=== PATIENT | male | born 1935 | race Caucasian/White ===

== ENCOUNTER 2017-01-19 18:36 | Inpatient (IN) | payer MEDICARE, OTHER ==
--- NOTE | 2017-01-19 20:11 | RAD ---
INDICATION: Chest pain. COMPARISON: Comparison is made with a prior chest x-ray study from March 17, 2016. TECHNIQUE: A portable view of the chest was obtained. FINDINGS: There is a dual-chamber transvenous pacemaker present. The heart is within normal limits in size. The lungs are clear. No pleural effusion is seen. IMPRESSION: NO EVIDENCE FOR ACUTE FINDING, PACEMAKER IN PLACE.
[2017-01-19 20:29] LABS: Hematocrit 43 % (42-52); Hemoglobin 14.3 g/dl (14.0-18.0); Mean Corpuscular HGB Conc 33 g/dl (31-36); Mean Corpuscular Hemoglobin 32 pg (27-31); Mean Corpuscular Volume 96 fL (80-94); Mean Platelet Volume 8 um3 (7.4-10.4); Red Blood Count 4.45 10^6/ul (4.0-5.4); Red Cell Distribution Width 15 % (10.5-15); White Blood Count 6.1 10^3/ul (3.5-10.8)
[2017-01-19 20:45] LABS: Albumin 3.9 g/dL (3.2-5.2); BUN/Creatinine Ratio 17.9 (8-20); Calcium 9.7 mg/dL (8.6-10.3); EGFR African American 81.1 (>60); EGFR Non-African American 63.1 (>60); Globulin 3.6 g/dL (2-4); Potassium 4.2 mmol/L (3.5-5.0); Total Bilirubin 0.6 mg/dL (0.2-1.0); Total Protein 7.5 g/dL (6.4-8.9)
[2017-01-19 20:46] LABS: Troponin I 0.01 ng/mL (<0.04)
[2017-01-19] MEDS ORDERED: hydrALAZINE IV* 20 MG/ML VIAL IV PRN (22:11)
[2017-01-19] MEDS ORDERED: hydrALAZINE IV* 20 MG/ML VIAL ONE (22:13)
--- NOTE | 2017-01-19 22:24 | ED ---
Jessica Mills SooYoung, scribed for Jeevan Chowdary MD on 01/19/17 at 1932 . HPI Chest Pain - HPI Summary HPI Summary: An 81 y/o M with pacemaker presents to ED with c/o intermittent CP for past ten days. Pain is described as sharp and occurs with exertion, most commonly when he 's walking. Denies diaphoresis, SOB, lightheadedness. Pt has recently traveled via cruise and cross-country flight. He thought his CP was acid reflux initially. Saw Dr. Pascual today, who performed an EKG and recommend pt be further evaluated in ED. PMHx: afib. Takes blood thinner. Pt states being hungry at bedside. - History of Current Complaint Chief Complaint: EDChestPainROMI Time Seen by Provider: 01/19/17 19:16 Hx Obtained From: Patient, Family/Mender Hand Onset/Duration: Started Days Ago, Still Present Timing: Intermittent Current Severity: Severe Pain Intensity: 9 Pain Scale Used: 0-10 Numeric Character: Sharp/Stabbing Aggravating Factor(s): Exertion - walking Associated Signs and Symptoms: Negative: Shortness of Breath, Lightheadedness, Diaphoresis - Allergy/Home Medications Allergies/Adverse Reactions: Allergies Allergy/AdvReac Type Severity Reaction Status Date / Time Cimetidine [From Tagamet HB] Allergy Intermediate Bleeding Verified 11/03/15 11: 52 Tamsulosin [From Flomax] Allergy Intermediate Dizziness Verified 11/03/15 11:52 Statins Allergy Mild body aches Verified 11/03/15 11:52 Gabapentin Allergy GI Upset Verified 11/03/15 11:52 arreola Allergy Unknown Uncoded 11/03/15 11:52 Reaction Details Vascepa Allergy Unknown Uncoded 06/06/16 09:35 Reaction Details PMH/Surg Hx/FS Hx/Imm Hx Previously Healthy: No Endocrine/Hematology History: Reports: Hx Anticoagulant Therapy Denies: Hx Diabetes, Hx Systemic Lupus Erythematosus, Hx Thyroid Disease Cardiovascular History: Reports: Hx Aneurysm, Hx Atrial Fibrillation, Hx Hypertension, Hx Pacemaker/ICD Denies: Hx Congestive Heart Failure Respiratory History: Denies: Hx Asthma, Hx Chronic Obstructive Pulmonary Disease (COPD) GI History: Denies: Hx Ulcer History: Denies: Hx Dialysis, Hx Renal Disease Musculoskeletal History: Denies: Hx Rheumatoid Arthritis, Hx Osteoporosis Neurological History: Denies: Hx CVA, Hx Peripheral Neuropathy Psychiatric History: Denies: Hx Anxiety, Hx Depression - Cancer History Hx Chemotherapy: No - Surgical History Surgery Procedure, Year, and Place: pacer, l5-s1 fusion,RT FOREARM, VASECTOMY, RT HEEL SPUR Infectious Disease History: No Infectious Disease History: Reports: Hx Hepatitis, Hx Shingles, Traveled Outside the [place] in Last 30 Days - [place] - Family History Known Family History: Positive: Hypertension - Social History Occupation: Retired Lives: With Family Alcohol Use: Weekly Hx Substance Use: No Substance Use Type: Reports: None Hx Tobacco Use: Yes Smoking Status (MU): Former Smoker Type: Cigarettes Review of Systems Negative: Skin Diaphoresis - neg: lightheadedness Positive: Chest Pain Negative: Shortness Of Breath All Other Systems Reviewed And Are Negative: Yes Physical Exam Triage Information Reviewed: Yes Vital Signs On Initial Exam: Initial Vitals Temp Pulse Resp BP Pulse Ox 96 F 88 16 164/95 97 01/19/17 18:42 01/19/17 18:42 01/19/17 18:42 01/19/17 18:42 01/19/17 18:42 Vital Signs Reviewed: Yes Appearance: Positive: Well-Appearing, No Pain Distress Skin: Positive: Warm, Skin Color Reflects Adequate Perfusion, Dry Head/Face: Positive: Normal Head/Face Inspection Eyes: Positive: Normal ENT: Positive: Normal ENT inspection Neck: Positive: Supple, Nontender Respiratory/Lung Sounds: Positive: Clear to Auscultation, Breath Sounds Present Cardiovascular: Positive: IRR Abdomen Description: Positive: Nontender, Soft Bowel Sounds: Positive: Present Musculoskeletal: Positive: Normal Neurological: Positive: Normal Psychiatric: Positive: Normal, Affect/Mood Appropriate Diagnostics - Vital Signs Vital Signs Temp Pulse Resp BP Pulse Ox 01/19/17 18:42 96 F 88 16 164/95 97 - Laboratory Lab Results: Lab Results 01/19/17 01/19/17 01/19/17 Range/Units 20:23 20:23 20:23 WBC 6.1 (3.5-10.8) 10^3/ul RBC 4.45 (4.0-5.4) 10^6/ul Hgb 14.3 (14.0-18.0) g/dl Hct 43 (42-52) % MCV 96 H (80-94) fL MCH 32 H (27-31) pg MCHC 33 (31-36) g/dl RDW 15 (10.5-15) % Plt Count 220 (150-450) 10^3/ul MPV 8 (7.4-10.4) um3 Neut % (Auto) 50.6 (38-83) % Lymph % (Auto) 34.3 (25-47) % [place] % (Auto) 11.4 H (1-9) % Eos % (Auto) 2.5 (0-6) % Baso % (Auto) 1.2 (0-2) % Absolute Neuts (auto) 3.1 (1.5-7.7) 10^3/ul Absolute Lymphs (auto) 2.1 (1.0-4.8) 10^3/ul Absolute Monos (auto) 0.7 (0-0.8) 10^3/ul Absolute Eos (auto) 0.2 (0-0.6) 10^3/ul Absolute Basos (auto) 0.1 (0-0.2) 10^3/ul Absolute Nucleated RBC 0 10^3/ul Nucleated RBC % 0 INR (Anticoag Therapy) 1.25 H (0.89-1.11) D-Dimer, Quantitative 200 (Less Than 230) ng/mL Sodium 135 (133-145) mmol/L Potassium 4.2 (3.5-5.0) mmol/L Chloride 103 (101-111) mmol/L Carbon Dioxide 26 (22-32) mmol/L Anion Gap 6 (2-11) mmol/L BUN 20 (6-24) mg/dL Creatinine 1.12 (0.67-1.17) mg/dL Est GFR ( Amer) 81.1 (>60) Est GFR (Non-Af Amer) 63.1 (>60) BUN/Creatinine Ratio 17.9 (8-20) Glucose 94 (70-100) mg/dL Lactic Acid (0.5-2.0) mmol/L Calcium 9.7 (8.6-10.3) mg/dL Total Bilirubin 0.60 (0.2-1.0) mg/dL AST 20 (13-39) U/L ALT 18 (7-52) U/L Alkaline Phosphatase 43 (34-104) U/L Troponin I 0.01 (<0.04) ng/mL Total Protein 7.5 (6.4-8.9) g/dL Albumin 3.9 (3.2-5.2) g/dL Globulin 3.6 (2-4) g/dL Albumin/Globulin Ratio 1.1 (1-3) 01/19/17 Range/Units 20:23 WBC (3.5-10.8) 10^3/ul RBC (4.0-5.4) 10^6/ul Hgb (14.0-18.0) g/dl Hct (42-52) % MCV (80-94) fL MCH (27-31) pg MCHC (31-36) g/dl RDW (10.5-15) % Plt Count (150-450) 10^3/ul MPV (7.4-10.4) um3 Neut % (Auto) (38-83) % Lymph % (Auto) (25-47) % [place] % (Auto) (1-9) % Eos % (Auto) (0-6) % Baso % (Auto) (0-2) % Absolute Neuts (auto) (1.5-7.7) 10^3/ul Absolute Lymphs (auto) (1.0-4.8) 10^3/ul Absolute Monos (auto) (0-0.8) 10^3/ul Absolute Eos (auto) (0-0.6) 10^3/ul Absolute Basos (auto) (0-0.2) 10^3/ul Absolute Nucleated RBC 10^3/ul Nucleated RBC % INR (Anticoag Therapy) (0.89-1.11) D-Dimer, Quantitative (Less Than 230) ng/mL Sodium (133-145) mmol/L Potassium (3.5-5.0) mmol/L Chloride (101-111) mmol/L Carbon Dioxide (22-32) mmol/L Anion Gap (2-11) mmol/L BUN (6-24) mg/dL Creatinine (0.67-1.17) mg/dL Est GFR ( Amer) (>60) Est GFR (Non-Af Amer) (>60) BUN/Creatinine Ratio (8-20) Glucose (70-100) mg/dL Lactic Acid 0.8 (0.5-2.0) mmol/L Calcium (8.6-10.3) mg/dL Total Bilirubin (0.2-1.0) mg/dL AST (13-39) U/L ALT (7-52) U/L Alkaline Phosphatase (34-104) U/L Troponin I (<0.04) ng/mL Total Protein (6.4-8.9) g/dL Albumin (3.2-5.2) g/dL Globulin (2-4) g/dL Albumin/Globulin Ratio (1-3) Result Diagrams: 01/19/17 20:23 01/19/17 20:23 Lab Statement: Any lab studies that have been ordered have been reviewed, and results considered in the medical decision making process. - Radiology CXR Xray Interpretation: No Acute Changes - IMPRESSION: No evidence for acute findings. Pacemaker in place. ED physician has reviewed this report and agrees. Radiology Interpretation Completed By: Radiologist - EKG 1858 EKG Rhythm: Atrial Fibrillation - with controlled rate Chest Pain Course/Dx - Course Course Of Treatment: Mr. Keller has a worrisome story for unstable angina and an EDACS score of 27. I have asked the hospitalists to admit him for further W/ U. - Diagnoses Provider Diagnoses: Chest pain - Provider Notifications Discussed Care Of Patient With: Asaf Phillip - hospitalist Time Discussed With Above Provider: 20:15 Instructed by Provider To: Other - Discussed pt. Will wait to see lab results. Discharge - Discharge Plan Condition: Stable Disposition: ADMITTED TO [facility] Referrals: Na Pascual MD [Primary Care Provider] - Consult Consult: 2126: Consult with Dr. Phillip, hospitalist Will admit pt. The documentation as recorded by the Jessica muñiz SooYoung accurately reflects the service I personally performed and the decisions made by me, Jeevan Chowdary MD.
[2017-01-19] MEDS ORDERED: Aspirin Low Dose CHEW TAB* 81 MG PO ONE (22:44)
[2017-01-19] MEDS ORDERED: oxyCODONE TAB* 5 MG TAB PO PRN (22:44)
[2017-01-19] MEDS ORDERED: Ondansetron INJ* 2 MG/ML VIAL IV PRN (22:44)
[2017-01-19] MEDS ORDERED: Albuterol 2.5 MG/3 ML NEB.SOL* (0.083%) INH PRN (22:44)
[2017-01-19] MEDS ORDERED: NS 0.9% 1000 ML* 1,000 ML IV SCH (22:45)
--- NOTE | 2017-01-19 22:48 | HP ---
H&P (Free Text) History and Physical: PCP: Ye Crenshaw MD Date/Time: 01/19/20172019 CC: chest pain HPI: Mr Keller is an 81YO male HX CAD w/ 50% LAD lesion on cath 2005 who went on a cruise ~10days ago. At the beginning he was having a cough typical of his Spring/Fall seasonal allergies, but towards the end of the trip and now afterwards he began having exertional mod/sev substernal to L parasternal chest pain associated with a near syncopal feeling, but no SOB, N/V, sweats, palpitations, or light-headedness. Additionally, he denies sputum production, F/ C, LE swelling, or other issues. Pain is not affected by movement, cough, or deep inspiration. PMedHx CAD w/ 50% LAD lesion on cath 2005 HX CVA HTN HLD, pure chronic AFIB KYLE pseudo-gout Ambulatory Orders Nursing to reconcile. Aspirin 81 mg PO DAILY 08/26/13 Diltiazem HCl Coated Beads [Diltiazem HCl ER] 360 mg PO DAILY 08/26/13 Fexofenadine HCl [Yessenia Allergy] 180 mg PO DAILY PRN 08/26/13 Mometasone Furoate (Nasal) [Nasonex] 2 spray BOTH NARES BID PRN 08/26/13 Multiple Vitamin [Multivitamins] 1 tab PO DAILY 08/26/13 Carvedilol TAB* [Coreg TAB*] 6.25 mg PO BID 11/03/15 Diclofenac 1% GEL (NF) [Voltaren 1% GEL (NF)] 1 applic TOPICAL DAILY PRN Afilbercept 1 tab PO DAILY PRN 06/06/16 [place]-3 Fatty Acids [Fish Oil 1200 mg] 1 cap PO BID 06/06/16 Voltaren EC TAB* 1 tab PO DAILY 06/06/16 Acetaminophen [Acetaminophen Extra Stren] 500 mg PO BID 06/10/16 Vdaytxivrgo-Tgeeroqqywn-Qmo C- [Glucosamine 1500 Complex] 1 cap PO BID 06/10/16 Lidocaine PATCH 5%* [Lidoderm 5% Patch*] 1 patch TRANSDERM DAILY PRN 06/10/16 Allergies Cimetidine [From Tagamet HB] Allergy (Intermediate, Verified 11/03/15 11:52) Bleeding Tamsulosin [From Flomax] Allergy (Intermediate, Verified 11/03/15 11:52) Dizziness Statins Allergy (Mild, Verified 11/03/15 11:52) body aches Gabapentin Allergy (Verified 11/03/15 11:52) GI Upset arreola Allergy (Uncoded 11/03/15 11:52) Unknown Reaction Details Vascepa Allergy (Uncoded 06/06/16 09:35) Unknown Reaction Details PSurgHx Lumbar laminectomy & fusion vasectomy foot surgery SocHx: former smoker w/ ~10 PYHX, mild alcohol, no recreational drugs; lives with his ; full code status FamHx: Father: COPD; Mother: passed in child ROS: as above, otherwise reviewed and all were negative vitals: Vital Signs Temp 36.4 C 01/19/17 22:21 Pulse 88 01/19/17 22:21 Resp 18 01/19/17 22:21 BP 156/103 01/19/17 22:21 Pulse Ox 97 01/19/17 22:21 Intake & Output 01/18/17 01/19/17 01/19/17 23:59 11:59 23:59 Weight 99.79 kg Constitutional: NAD, normally developed, obese elderly white male HEENM: atraumatic; sclera/conjunctiva: non-icteric/clear; hearing: clinically intact; oropharynx: clear, mucosa moist Neck: soft tissue: non-tender; thyroid: normal Pulmonary: clear to auscultation bilaterally, good aeration, no accessory muscle use CV: RR/RR, normal S1S2, no carotid bruit, no jugular venous distention, 2+ B DP/ PT, no edema Abdominal: soft, non-distended, non-tender, no rebound/guarding/rigidity, normoactive bowel sounds, no hepatosplenomegaly or masses, no costovertebral angle tenderness Musculoskeletal: general: grossly intact; gait: stable Integumental: normal appearance and texture of exposed skin Psychiatric orientation: AA&O to PPS affect: calm mood: pleasant eye contact: good content: reliable responses: timely insight: good Testing: Lab Results 01/19/17 01/19/17 01/19/17 Range/Units 20:23 20:23 20:23 WBC 6.1 (3.5-10.8) 10^3/ul RBC 4.45 (4.0-5.4) 10^6/ul Hgb 14.3 (14.0-18.0) g/dl Hct 43 (42-52) % MCV 96 H (80-94) fL MCH 32 H (27-31) pg MCHC 33 (31-36) g/dl RDW 15 (10.5-15) % Plt Count 220 (150-450) 10^3/ul MPV 8 (7.4-10.4) um3 Neut % (Auto) 50.6 (38-83) % Lymph % (Auto) 34.3 (25-47) % [place] % (Auto) 11.4 H (1-9) % Eos % (Auto) 2.5 (0-6) % Baso % (Auto) 1.2 (0-2) % Absolute Neuts (auto) 3.1 (1.5-7.7) 10^3/ul Absolute Lymphs (auto) 2.1 (1.0-4.8) 10^3/ul Absolute Monos (auto) 0.7 (0-0.8) 10^3/ul Absolute Eos (auto) 0.2 (0-0.6) 10^3/ul Absolute Basos (auto) 0.1 (0-0.2) 10^3/ul Absolute Nucleated RBC 0 10^3/ul Nucleated RBC % 0 INR (Anticoag Therapy) 1.25 H (0.89-1.11) D-Dimer, Quantitative 200 (Less Than 230) ng/mL Sodium 135 (133-145) mmol/L Potassium 4.2 (3.5-5.0) mmol/L Chloride 103 (101-111) mmol/L Carbon Dioxide 26 (22-32) mmol/L Anion Gap 6 (2-11) mmol/L BUN 20 (6-24) mg/dL Creatinine 1.12 (0.67-1.17) mg/dL Est GFR ( Amer) 81.1 (>60) Est GFR (Non-Af Amer) 63.1 (>60) BUN/Creatinine Ratio 17.9 (8-20) Glucose 94 (70-100) mg/dL Lactic Acid (0.5-2.0) mmol/L Calcium 9.7 (8.6-10.3) mg/dL Total Bilirubin 0.60 (0.2-1.0) mg/dL AST 20 (13-39) U/L ALT 18 (7-52) U/L Alkaline Phosphatase 43 (34-104) U/L Troponin I 0.01 (<0.04) ng/mL Total Protein 7.5 (6.4-8.9) g/dL Albumin 3.9 (3.2-5.2) g/dL Globulin 3.6 (2-4) g/dL Albumin/Globulin Ratio 1.1 (1-3) 01/19/17 Range/Units 20:23 WBC (3.5-10.8) 10^3/ul RBC (4.0-5.4) 10^6/ul Hgb (14.0-18.0) g/dl Hct (42-52) % MCV (80-94) fL MCH (27-31) pg MCHC (31-36) g/dl RDW (10.5-15) % Plt Count (150-450) 10^3/ul MPV (7.4-10.4) um3 Neut % (Auto) (38-83) % Lymph % (Auto) (25-47) % [place] % (Auto) (1-9) % Eos % (Auto) (0-6) % Baso % (Auto) (0-2) % Absolute Neuts (auto) (1.5-7.7) 10^3/ul Absolute Lymphs (auto) (1.0-4.8) 10^3/ul Absolute Monos (auto) (0-0.8) 10^3/ul Absolute Eos (auto) (0-0.6) 10^3/ul Absolute Basos (auto) (0-0.2) 10^3/ul Absolute Nucleated RBC 10^3/ul Nucleated RBC % INR (Anticoag Therapy) (0.89-1.11) D-Dimer, Quantitative (Less Than 230) ng/mL Sodium (133-145) mmol/L Potassium (3.5-5.0) mmol/L Chloride (101-111) mmol/L Carbon Dioxide (22-32) mmol/L Anion Gap (2-11) mmol/L BUN (6-24) mg/dL Creatinine (0.67-1.17) mg/dL Est GFR ( Amer) (>60) Est GFR (Non-Af Amer) (>60) BUN/Creatinine Ratio (8-20) Glucose (70-100) mg/dL Lactic Acid 0.8 (0.5-2.0) mmol/L Calcium (8.6-10.3) mg/dL Total Bilirubin (0.2-1.0) mg/dL AST (13-39) U/L ALT (7-52) U/L Alkaline Phosphatase (34-104) U/L Troponin I (<0.04) ng/mL Total Protein (6.4-8.9) g/dL Albumin (3.2-5.2) g/dL Globulin (2-4) g/dL Albumin/Globulin Ratio (1-3) ECG, personally reviewed: AFIB rate 84, no ischemia, non-specific diffuse ST-T changes CXR, personally reviewed: IMPRESSION: NO EVIDENCE FOR ACUTE FINDING, PACEMAKER IN PLACE. Impression: 81M presenting with chest pain for r/o ACS DIAGNOSIS & PLAN Primary chest pain r/o ACS : CAD w/ 50% LAD lesion on cath 2006 : telemetry : trend troponin : supplemental oxygen : aspirin : chemical NST in AM : consider cardiology consult pending above results : supportive care Secondary HX CVA : review meds once reconciled HTN : review meds once reconciled HLD, pure : review meds once reconciled chronic AFIB : review meds once reconciled KYLE : review meds once reconciled pseudo-gout : review meds once reconciled Admission Rational: observation for r/o ACS DVTp: SCDs & heparin SQ Code Status: full HCP:
[2017-01-19] MEDS: Morphine INJ* 2 MG/ML 1 ML SYRINGE (TWO MG - NEW SYRINGE VERSION) IV PRN (23:28)
[2017-01-20 00:33] LABS: EGFR African American 98.1 (>60); EGFR Non-African American 76.3 (>60)
[2017-01-20 00:35] LABS: Troponin I 0.01 ng/mL (<0.04)
[2017-01-20] MEDS: Heparin VIAL(*) 5000 UNITS/ML VIAL (FIVE THOUSAND) SUBCUT SCH ×3 (05:44→21:07)
[2017-01-20] MEDS: Morphine INJ* 2 MG/ML 1 ML SYRINGE (TWO MG - NEW SYRINGE VERSION) IV PRN (05:45)
[2017-01-20] MEDS ORDERED: Omeprazole CAP* 20 MG PO SCH (06:00)
[2017-01-20] MEDS: Docusate CAP* 100 MG PO SCH ×2 (08:46→21:05)
[2017-01-20] MEDS: Aspirin EC Low Dose* 81 MG TAB.EC PO SCH (08:46)
[2017-01-20] MEDS ORDERED: Regadenoson* 0.4 MG/5 ML SYRINGE ONE (11:56)
--- NOTE | 2017-01-20 13:10 | RAD ---
Edited for charges. INDICATION: Chest pain COMPARISON: Cardiac gated blood pool scan January 04, 2015 TECHNIQUE: A single day SPECT protocol was utilized. Rest images were acquired following the intravenous injection of 10.5 millicuries of technetium 99m tetrofosmin. Pharmacologic stress images were acquired following the intravenous administration of 26.2 millicuries of technetium 99m tetrofosmin. FINDINGS: There is a moderate to large anteroapical defect which is primarily ischemic although the may be a tiny fixed component near the apex. There are no other defects or stress-induced or fixed nature. The cardiac chamber size is normal. There is paradoxical motion apex with extension to the inferior and septal vale near the apex. The ejection fraction is calculated at the lower range of normal measuring 51% during stress. IMPRESSION: There is a moderate-sized anteroapical defect which primarily represents an ischemic defect. Low-normal ejection fraction. ASSESSMENT: INTERMEDIATE-RISK Based on imaging criteria from ACC/AHA 2002 Guideline Update for the Management of Patients With Chronic Stable Angina Table 23. Noninvasive Risk Stratification. MTDD
--- NOTE | 2017-01-20 14:19 | PN ---
Subjective Date of Service: 01/20/17 Interval History: This is an 81 yo male with chronic afib who was admitted overnight with c/o CP. Patient had been having substernal exertional chest pain for several days prior to admission. He reports that he had some mild pain when he awoke this am. He was asx during stress test, but he had a soda after the stress test that seemed to make the pain worse. At the time of exam patient denies any ongoing CP or c/o SOB. Objective Active Medications: Acetaminophen (Tylenol Tab*) 650 mg PO Q6H PRN PRN Reason: FEVER/PAIN Albuterol (Ventolin 2.5 Mg/3 Ml Neb.Michaelle*) 2.5 mg INH Q2H PRN PRN Reason: SOB/WHEEZING Aspirin (Aspirin Ec Low Dose*) 81 mg PO DAILY [facility] Last Admin: 01/20/17 08:46 Dose: 81 mg Docusate Sodium (Colace Cap*) 200 mg PO BID [facility] Last Admin: 01/20/17 08:46 Dose: 200 mg Heparin Sodium (Porcine) (Heparin Vial(*)) 5,000 units SUBCUT Q8HR [facility] Last Admin: 01/20/17 13:03 Dose: 5,000 units Hydralazine HCl (Apresoline Iv*) 10 mg IV Q4H PRN PRN Reason: Systolic >170 Last Admin: 01/19/17 22:15 Dose: 10 mg Sodium Chloride (Ns 0.9% 1000 Ml*) 1,000 mls @ 50 mls/hr IV PER RATE [facility] Last Admin: 01/19/17 23:22 Dose: 50 mls/hr Melatonin (Melatonin (Nf)) 3 mg PO BEDTIME PRN; Protocol PRN Reason: Sleep Morphine Sulfate (Morphine Inj (Syringe)*) 2 mg IV Q4H PRN PRN Reason: PAIN - MILD Last Admin: 01/20/17 05:45 Dose: 2 mg Omeprazole (Prilosec Cap*) 20 mg PO DAILY@0600 [facility] Last Admin: 01/20/17 05:43 Dose: 20 mg Ondansetron HCl (Zofran Inj*) 4 mg IV Q6H PRN PRN Reason: NAUSEA Last Admin: 01/20/17 13:03 Dose: 4 mg Oxycodone HCl (Roxycodone Tab*) 2.5 mg PO Q4H PRN PRN Reason: PAIN Vital Signs: Temp Pulse Resp BP Pulse Ox 97.4 F 44 20 162/80 98 01/20/17 12:43 01/20/17 12:43 01/20/17 12:43 01/20/17 12:43 01/20/17 12:43 Oxygen Devices in Use Now: None Appearance: Well appearing elderly gentleman who appears younger than stated age in NAD Respiratory: Symmetrical Chest Expansion and Respiratory Effort, Clear to Auscultation Cardiovascular: NL Sounds; No Murmurs; No JVD, RRR Abdominal: NL Sounds; No Tenderness; No Distention Extremities: No Edema Skin: No Rash or Ulcers Neurological: Alert and Oriented x 3 Result Diagrams: 01/19/17 20:23 01/19/17 23:38 Additional Lab and Data: . Diagnostic Imaging: CXR - NAD EKG - afib, no ischemic changes Nuc stress test - moderate anteroapical defect which appears to be mostly ischemic Assess/Plan/Problems-Billing Assessment: This is an 81 yo male with chronic afib, CAD, HTN, HLD, KYLE and h/o CVA who presented with c/o CP. - Patient Problems (1) Chest pain Comment: Patient is now asx, but has had intermittent CP overnight Trop neg, no EKG changes Stress test positive for ischemic defect in anteroapical segment Requested cardiology consultation for possible catheterization (2) CAD (coronary artery disease) Comment: Followed by Dr Valle 50% LAD lesion on cath from 2005 (3) Afib Comment: Chronic Rate controlled Anticoagulated with Pradaxa (4) KYLE (obstructive sleep apnea) Comment: Compliant with CPAP (5) H/O: CVA (cerebrovascular accident) Comment: No sig residual deficit (6) HTN (hypertension) Comment: Mild HTN since admission Cont usual home medications at this time (7) HLD (hyperlipidemia) Comment: Statin intolerant (8) Pacemaker (9) Full code status (10) DVT prophylaxis Comment: Pradaxa Status and Disposition: Observation. Pending cardiology consultation
[2017-01-20] MEDS ORDERED: Clopidogrel TAB* 300 MG PO ONE (15:56)
--- NOTE | 2017-01-20 18:43 | CONS ---
CC: Dr. Basim Valle; Dr. Na Araujo * CARDIOLOGY CONSULTATION: DATE OF CONSULT: 01/20/17 INDICATION FOR CONSULTATION: Chest pain, abnormal stress test. HISTORY OF PRESENT ILLNESS: The patient is an 81-year-old gentleman with a history of moderate coronary artery disease, history of chronic atrial fibrillation, history of CVA in 2004, who came to the hospital because of chest pain. The patient states that he has been on a 14-day cruise through the [facility]. During that trip, he was having intermittent chest pain. He described the chest pain occasionally at rest, occasionally with meals, occasionally with exertion. He says that his worst episode of chest pain occurred when he got off the plane in [place] and was walking to the [employer] [facility] area. He said he had to sit twice during that trip because of crushing chest pain. The patient went to see his primary care physician yesterday afternoon, who referred the patient to the emergency room. On arrival to the emergency room, the patient was asymptomatic. His EKG showed atrial fibrillation with no ischemic EKG changes. His troponins have been negative. The patient underwent a chemical nuclear stress test today, which showed a large area of ischemia to his distal anterior wall on apex, which was completely reversible. The patient's TID was elevated at 1.38. His LV function was low normal. PAST MEDICAL HISTORY: Significant for chronic atrial fibrillation; history of pacemaker implantation; history of a CVA in 2004; history of sleep apnea, he uses a CPAP machine. PAST SURGICAL HISTORY: Lumbar laminectomy in 1966, vasectomy, heel spur removal in 1983, pacemaker implantation. OUTPATIENT MEDICATIONS: 1. Coreg 3.125 mg b.i.d. 2. Diltiazem ER 240 mg a day. 3. Oxygen as needed. 4. ProAir inhaler. 5. Pradaxa 150 mg b.i.d. The patient states his last dose was Thursday morning, January 19. 6. Aspirin 81 mg a day. 7. Voltaren cream. ALLERGIES: Intolerant of Tagamet and statin therapy. The patient did have a chemical nuclear stress test in August of 2015, which showed normal perfusion throughout the myocardium, normal LV function. His most recent pacemaker interrogation was in July of 2016, which demonstrated he was in atrial fibrillation 71% of the time. His atrial and ventricular leads are functioning normally. SOCIAL HISTORY: He is . He is currently retired. He is a previous smoker, quit in 1963. He drinks 3 to 4 glasses of wine a week. He does get regular exercise 3 to 4 times a week. PHYSICAL EXAM: Height is 5 feet 9 inches, weight 219 pounds, temperature 97.4, heart rate is 75, blood pressure 162/80, respiratory rate is 18, oxygen saturation 98% on room air. Sclerae anicteric. Oropharynx is pink without erythema. Carotids are 2+ without bruits. JVD is normal. Thyroid is normal. Cardiac Exam: Irregular S1, S2 without any murmurs, rubs, or gallops. PMI is normal. Lungs are clear to auscultation bilaterally. There is no dullness to percussion. Abdomen is obese, soft, nontender, nondistended with normoactive bowel sounds. Extremities show no edema. He has 2+ pulses in his dorsalis pedis, popliteal, and radial arteries. The patient is awake, alert, and oriented. He moves all 4 extremities equally. DIAGNOSTIC STUDIES/LAB DATA: CBC within normal limits. Chemistry is within normal limits. Troponins are negative x3. IMPRESSION: This is an 81-year-old gentleman with a history of moderate coronary artery disease, who was admitted to the hospital with anginal type symptoms. The patient's troponins have been negative. The patient's chemical nuclear stress test is very concerning for a larger of ischemia to his anterior wall. For now, my recommendation that the patient undergo cardiac catheterization. Risks and benefits of those were described in detail. The patient is willing to proceed. At this point, I do not think any medication changes are necessary. The patient will stay on Pradaxa. His case was discussed with Dr. Mcdonough and Joaquin Stock. [id number]/[facility] #: [id number] KARIME
[2017-01-20] MEDS: Carvedilol TAB* 6.25 MG PO SCH (21:05)
[2017-01-21] MEDS: CMCS Pantoprazole TAB (NF) 40 MG TAB PO SCH ×2 (05:59→06:39)
[2017-01-21] MEDS: Heparin VIAL(*) 5000 UNITS/ML VIAL (FIVE THOUSAND) SUBCUT SCH ×3 (06:42→21:33)
[2017-01-21] MEDS: Clopidogrel TAB* 75 MG PO SCH (09:38)
[2017-01-21] MEDS: Aspirin EC Low Dose* 81 MG TAB.EC PO SCH (09:38)
[2017-01-21] MEDS: Diltiazem CD CAP* 240 MG PO SCH (09:38)
[2017-01-21] MEDS: Docusate CAP* 100 MG PO SCH ×2 (09:38→21:32)
[2017-01-21] MEDS: Carvedilol TAB* 6.25 MG PO SCH (09:38)
[2017-01-21] MEDS ORDERED: NS 0.9% 1000 ML* 1,000 ML IV SCH ×2 (09:45→12:00)
[2017-01-21] MEDS ORDERED: fentaNYL* 50 MCG/ML 2 ML VIAL (100 MCG VIAL) ONE (10:08)
[2017-01-21] MEDS ORDERED: Heparin(*) 1000 UNIT/ML 10 ML VIAL CATH LAB IV ONE (10:08)
[2017-01-21] MEDS ORDERED: VERAPAMIL 2.5 MG/ML 4 ML VIAL ONE (10:08)
[2017-01-21] MEDS ORDERED: Lidocaine 1% INJ* 10 MG/ML 30 ML SDV ONE (10:09)
[2017-01-21] MEDS ORDERED: Iohexol 350 (CONTRAST) 200 ML MDV IV ONE ×2 (10:09→11:28)
[2017-01-21] MEDS ORDERED: Heparin 2 UNITS/ML IVPREMIX* 3,000 ML IV ONE (10:09)
[2017-01-21] MEDS ORDERED: nitroGLYCERIN DRIP* 25,000 MCG/250 ML BTL ONE (10:09)
[2017-01-21] MEDS ORDERED: Midazolam* 1 MG/ML 10 ML VIAL (10 MG) ONE (10:17)
[2017-01-21] MEDS ORDERED: Metoprolol Tartrate IV* 1 MG/ML 5 ML VIAL ONE (10:57)
[2017-01-21] MEDS ORDERED: Nitroglycerin TAB 0.4 MG* 0.4 MG TAB SL PRN (11:51)
[2017-01-21] MEDS ORDERED: oxyCODONE/Acetamin 5/325 MG* TAB PO PRN (11:51)
[2017-01-21] MEDS ORDERED: fentaNYL* 50 MCG/ML 2 ML VIAL (100 MCG VIAL) IV PRN (11:51)
[2017-01-21] MEDS ORDERED: Norepinephrine 16MCG/ML IVPRE* 4,000 MCG/250 ML BAG IV ONE (12:15)
[2017-01-21] MEDS ORDERED: Norepinephrine VIAL* 1 MG/ML 4 ML VIAL ONE (12:15)
[2017-01-21] MEDS ORDERED: Atropine SYRINGE* 0.1 MG/ML 10 ML SYRINGE (1 MG) ONE (12:15)
[2017-01-21] MEDS: NS 0.9% 1000 ML* 1,500 ML IV ONE ×2 (12:38→13:22)
--- NOTE | 2017-01-21 13:38 | PN ---
Subjective Date of Service: 01/21/17 Interval History: Patient went to cath today with Dr Ortega. Complained of intermittent mild CP overnight. Cath revealed 95% mid LAD lesion and a 75% distal lesion, both of which were successfully stented. Post procedure, patient denies CP or SOB. No abd pain, n/v. Objective Active Medications: Acetaminophen (Tylenol Tab*) 650 mg PO Q6H PRN PRN Reason: FEVER/PAIN Albuterol (Ventolin 2.5 Mg/3 Ml Neb.Michaelle*) 2.5 mg INH Q2H PRN PRN Reason: SOB/WHEEZING Aspirin (Aspirin Low Dose Tab*) 81 mg PO DAILY [facility] Carvedilol (Coreg Tab*) 3.125 mg PO BID [facility] Last Admin: 01/21/17 09:38 Dose: 3.125 mg Clopidogrel Bisulfate (Plavix Tab*) 75 mg PO DAILY [facility] Last Admin: 01/21/17 09:38 Dose: 75 mg Diltiazem HCl (Cardizem Cd Cap*) 240 mg PO DAILY [facility] Last Admin: 01/21/17 09:38 Dose: 240 mg Docusate Sodium (Colace Cap*) 200 mg PO BID [facility] Last Admin: 01/21/17 09:38 Dose: 200 mg Fentanyl Citrate (Fentanyl*) 25 mcg IV Q2H PRN PRN Reason: PAIN Heparin Sodium (Porcine) (Heparin Vial(*)) 5,000 units SUBCUT Q8HR [facility] Last Admin: 01/21/17 06:42 Dose: 5,000 units Hydralazine HCl (Apresoline Iv*) 10 mg IV Q4H PRN PRN Reason: Systolic >170 Last Admin: 01/19/17 22:15 Dose: 10 mg Sodium Chloride (Ns 0.9% 1000 Ml*) 1,500 mls @ 100 mls/hr IV ONCE ONE Stop: 01/22/17 02:59 Last Admin: 01/21/17 13:22 Dose: 100 mls/hr Melatonin (Melatonin (Nf)) 3 mg PO BEDTIME PRN; Protocol PRN Reason: Sleep Morphine Sulfate (Morphine Inj (Syringe)*) 2 mg IV Q4H PRN PRN Reason: PAIN - MILD Last Admin: 01/20/17 05:45 Dose: 2 mg Nitroglycerin (Nitroglycerin Tab 0.4 Mg*) 0.4 mg SL Q5M PRN PRN Reason: ANGINA Ondansetron HCl (Zofran Inj*) 4 mg IV Q6H PRN PRN Reason: NAUSEA Last Admin: 01/20/17 13:03 Dose: 4 mg Oxycodone HCl (Roxycodone Tab*) 2.5 mg PO Q4H PRN PRN Reason: PAIN Oxycodone/Acetaminophen (Percocet 5/325 Tab*) 1 tab PO Q6H PRN PRN Reason: PAIN Pantoprazole Sodium (Protonix Tab (Nf)) 20 mg PO DAILY@0600 [facility] Last Admin: 01/21/17 06:39 Dose: 20 mg Vital Signs: Temp Pulse Resp BP Pulse Ox 96.4 F 98 15 122/78 100 01/21/17 13:07 01/21/17 12:00 01/21/17 12:00 01/21/17 12:00 01/21/17 12:00 Oxygen Devices in Use Now: Nasal Cannula Appearance: Well appearing elderly gentleman in NAD Respiratory: Symmetrical Chest Expansion and Respiratory Effort, Clear to Auscultation Cardiovascular: NL Sounds; No Murmurs; No JVD, - - irregularly irregular Abdominal: NL Sounds; No Tenderness; No Distention Extremities: No Edema Skin: No Rash or Ulcers Neurological: Alert and Oriented x 3 Result Diagrams: 01/19/17 20:23 01/19/17 23:38 Additional Lab and Data: . Diagnostic Imaging: CXR - NAD EKG - afib, no ischemic changes Nuc stress test - moderate anteroapical defect which appears to be mostly ischemic Assess/Plan/Problems-Billing Assessment: This is an 81 yo male with chronic afib, CAD, HTN, HLD, KYLE and h/o CVA who presented with c/o CP. - Patient Problems (1) CAD (coronary artery disease) Comment: Positive stress test Cath today showed 95% mid LAD lesion and 75% distal lesion with [address] Ortega ASA continued, started on Plavix Increase carvediolol for improved rate control Start low dose KOLE-I Patient reports intolerance to multiple statins, he is unwilling to trial another agent Will start Zetia, he may be a good candidate for a PCSK9 inhibitor (2) Afib Comment: Chronic Rate controlled Anticoagulated with Pradaxa which has been held for the cath and will resume when okayed by interventionalist (3) KYLE (obstructive sleep apnea) Comment: Compliant with CPAP (4) H/O: CVA (cerebrovascular accident) Comment: No sig residual deficit (5) HTN (hypertension) Comment: Mild HTN since admission Increasing carvedilol for improved HR control and will start a low dose KOLE-I given hypokinesis noted on cath (6) HLD (hyperlipidemia) Comment: Statin intolerant Fasting lipid panel pending for tomorrow am See discussion above Starting Zetia Recommend PCSK9 inhibitor (7) Pacemaker (8) Full code status (9) DVT prophylaxis Comment: SQ heparin until Pradaxa resumed Status and Disposition: Inpatient. Now admitted to ICU post cardiac catheterization
[2017-01-21] MEDS ORDERED: Bivalirudin(*) 250 MG VIAL ONE (14:34)
--- NOTE | 2017-01-21 16:26 | CONSULT ---
Consult Consult: Consultation Note Critical Care Requesting Physician: Dr Ranjith Pink Reason for consult: hypotension post cath Limitations in history/physical: none Date of consult: 01/21/2017 HPI: 81y M w/pmhx of Afib on AC, HTN, s/p PPM, CAD with 50% LAD lesions 2005 Cath, KYLE, CVA; presents to ER 01/19 with 10 days of chest pain during a cruise trip associated with near-syncopal feelings. Patient admitted for unstable angina. Today he had a cardiac cath demonstrating 95% LAD and 75% distal LAD lesions, s/p PCI x2 CAROL. Post procedure brought to ICU for monitoring. Shortly after developed increased hematoma of the right femoral area access site. Closure device used post cath was Mynx. Blood pressure dropped to the 50s systolic. Patient did not have any new Chest pain/sob/dizziness. Manually pressure held at hematoma site by Dr Pink, IVF NS bolus 1 Liter given, levophed started. Blood pressure improved to 90s then 130s on levophed/IVF bolus. Manual pressure was held for 30 min, hematoma stabilized and was marked. Repeat evaluation of hematoma represented stable hematoma size without further enlargement. On decreasing pressors, BP still was not holding. ROS: negative except for pertinent positives mentioned above. PMHx: Atrial Fibrillation on AC, Hypertension, PPM, CAD with 50% LAD lesions 2005 Cath, KYLE, CVA 2004 PSHx: PPM, L5-S1 lumbar fusion Family History: Mother - COPD Social History: Alcohol none, Smoking former smoker, Drug use-none; Job-retired Allergies: Allergies Allergy/AdvReac Type Severity Reaction Status Date / Time Cimetidine [From Tagamet HB] Allergy Intermediate Bleeding Verified 11/03/15 11: 52 Tamsulosin [From Flomax] Allergy Intermediate Dizziness Verified 11/03/15 11:52 Statins Allergy Mild body aches Verified 11/03/15 11:52 Gabapentin Allergy GI Upset Verified 11/03/15 11:52 arreola Allergy Unknown Uncoded 11/03/15 11:52 Reaction Details Vascepa Allergy Unknown Uncoded 06/06/16 09:35 Reaction Details Home Medications: Aspirin 81 mg PO DAILY 08/26/13 [History Confirmed 01/20/17] Diltiazem HCl Coated Beads [Diltiazem HCl ER] 240 mg PO DAILY 06/13/14 [History Confirmed 01/20/17] Fexofenadine HCl [Yessenia Allergy] 180 mg PO DAILY PRN 08/26/13 [History Confirmed 01/20/17] Mometasone Furoate (Nasal) [Nasonex] 2 spray BOTH NARES BID PRN 08/26/13 [ History Confirmed 01/20/17] Multiple Vitamin [Multivitamins] 1 tab PO DAILY 08/26/13 [History Confirmed 09/29] Carvedilol TAB* [Coreg TAB*] 3.125 mg PO BID 11/03/15 [History Confirmed ] Diclofenac 1% GEL (NF) [Voltaren 1% GEL (NF)] 1 applic TOPICAL DAILY PRN [History Confirmed 01/20/17] Afilbercept 1 mg PO DAILY PRN 06/06/16 [History Confirmed 01/20/17] Leona-3 Fatty Acids [Fish Oil 1200 mg] 1,200 mg PO BID 06/06/16 [History Confirmed 01/20/17] Acetaminophen [Acetaminophen Extra Stren] 1,000 mg PO BID 06/10/16 [History Confirmed 01/20/17] Ctsmujlxzbq-Qshqjaytrcn-Twh C- [Glucosamine 1500 Complex] 1 cap PO BID 06/10/16 [History Confirmed 01/20/17] Dabigatran CAP(NF) [Pradaxa CAP(NF)] 150 mg PO BID 01/20/17 [History Confirmed 01/20/17] Tele: afib, rate controlled Vitals: Vital Signs Temp 96.4 F 01/21/17 13:07 Pulse 69 01/21/17 15:06 Resp 21 01/21/17 15:06 BP 104/66 01/21/17 15:00 Pulse Ox 80 01/21/17 15:06 Intake & Output 01/20/17 01/21/17 01/21/17 18:59 06:59 18:59 Intake Total 523 0 1951 Output Total 625 Balance 523 -625 1 Intake: IV Fluids 3 1111 NS (0.9%) 1111 Medicated IV 15 CC - Norepinephrine/ 15 Levophed Oral 520 0 300 [place] Amount 525 Output: Urine 625 Other: # Bowel Movements 0 O2/Vent: RA, sat 100% Infusions: levophed Current Medications: Acetaminophen (Tylenol Tab*) 650 mg PO Q6H PRN PRN Reason: FEVER/PAIN Albuterol (Ventolin 2.5 Mg/3 Ml Neb.Michaelle*) 2.5 mg INH Q2H PRN PRN Reason: SOB/WHEEZING Aspirin (Aspirin Low Dose Tab*) 81 mg PO DAILY [facility] Carvedilol (Coreg Tab*) 6.25 mg PO BID [facility] Clopidogrel Bisulfate (Plavix Tab*) 75 mg PO DAILY [facility] Last Admin: 01/21/17 09:38 Dose: 75 mg Diltiazem HCl (Cardizem Cd Cap*) 240 mg PO DAILY [facility] Last Admin: 01/21/17 09:38 Dose: 240 mg Docusate Sodium (Colace Cap*) 200 mg PO BID [facility] Last Admin: 01/21/17 09:38 Dose: 200 mg Fentanyl Citrate (Fentanyl*) 25 mcg IV Q2H PRN PRN Reason: PAIN Heparin Sodium (Porcine) (Heparin Vial(*)) 5,000 units SUBCUT Q8HR [facility] Last Admin: 01/21/17 15:02 Dose: 5,000 units Hydralazine HCl (Apresoline Iv*) 10 mg IV Q4H PRN PRN Reason: Systolic >170 Last Admin: 01/19/17 22:15 Dose: 10 mg Sodium Chloride (Ns 0.9% 1000 Ml*) 1,500 mls @ 100 mls/hr IV ONCE ONE Stop: 01/22/17 02:59 Last Admin: 01/21/17 13:22 Dose: 100 mls/hr Lisinopril (Prinivil Tab*) 5 mg PO DAILY [facility] Melatonin (Melatonin (Nf)) 3 mg PO BEDTIME PRN; Protocol PRN Reason: Sleep Morphine Sulfate (Morphine Inj (Syringe)*) 2 mg IV Q4H PRN PRN Reason: PAIN - MILD Last Admin: 01/20/17 05:45 Dose: 2 mg Nitroglycerin (Nitroglycerin Tab 0.4 Mg*) 0.4 mg SL Q5M PRN PRN Reason: ANGINA Ondansetron HCl (Zofran Inj*) 4 mg IV Q6H PRN PRN Reason: NAUSEA Last Admin: 01/20/17 13:03 Dose: 4 mg Oxycodone HCl (Roxycodone Tab*) 2.5 mg PO Q4H PRN PRN Reason: PAIN Oxycodone/Acetaminophen (Percocet 5/325 Tab*) 1 tab PO Q6H PRN PRN Reason: PAIN Last Admin: 01/21/17 15:03 Dose: 1 tab Pantoprazole Sodium (Protonix Tab (Nf)) 20 mg PO DAILY@0600 [facility] Last Admin: 01/21/17 06:39 Dose: 20 mg Physical Exam: General: awake, alert, no distress, no diaphoresis Head: normocephalic, atraumatic HEENT: no pallor, no icterus, moist mucous membranes Neck: soft, supple, no jvd, no stridor CVS: irregular, normal reate, no murmur Resp: bilateral air entry, no rhales, no wheeze Abdomen: soft, nontender, nondistended, bowel sounds present Ext: pulses+, warm, no edema; right femoral site with hematoma site, stabilized and softer now Skin: intact Neuro: awake, alert, orientedx3, moving all extremities Labs: Laboratory Results - last 24 hr 01/21/17 01/21/17 01/21/17 13:00 13:00 15:00 WBC RBC Hgb Hct MCV MCH MCHC RDW Plt Count MPV CK-MB (CK-2) 9.6 H Troponin I 0.96 H* 1.18 H* 01/21/17 16:05 WBC 6.8 RBC 4.14 Hgb 13.2 L Hct 40 L MCV 97 H MCH 32 H MCHC 33 RDW 14 Plt Count 239 MPV 9 CK-MB (CK-2) Troponin I Imaging: - Assessment: 81y M w/pmhx of Afib on AC, HTN, s/p PPM, CAD with 50% LAD lesions 2006 Cath, KYLE, CVA; presents to ER 01/19 with 10 days of chest pain during a cruise trip associated with near-syncopal feelings. Patient admitted for unstable angina. Today he had a cardiac cath demonstrating 95% LAD and 75% distal LAD lesions, s/p PCI x2 CAROL. Post procedure developed femoral site hematoma, associated with hypotension. -Unstable Angina -CAD s/p mid-LAD and distal LAD PCI x2 CAROL 01/21 -Hypotension, suspect hypovolemic shock -Atrial fibrillation, rate controlled Plan: Neuro- stable CVS- hypotension, likely acutely from bleed from hematoma/access site. Stable now. Weaned down levophed but still got hypotensive. repeat h/h now stable 13, down from 14 after IVF NS also. Will consider CT abd/pelvis if further drop in h /h noted, may have to r/o RP bleed if no stabilization. NS infusion. Not on AC. On DAPT asa/Plavix. No Chest pain/resp distress. hold BB/ACEI/hydralazine. Resp- RA, no distress ID- afebrile. Wbc normal. GI- cardiac diet. Renal- Cr normal. K normal pre-procedure, no acidosis. Heme- hg normal pre-procedure. On DAPT post CAD/stents. Bleeding from right fem site intact/stable now. Endo- none Musculsk- right fem hematoma, stable. Cont to monitor for site enlargement. Wounds- none Nutrition- cardiac diet DVT prophylaxis: - GI prophylaxis: - Central Line: - Arterial Line: - [place] Cathetor: - Disposition: ICU post cath for hypotension/hematoma. Code Status: full code Total Critical Care time is 40 minutes, excluding procedures/teaching Andres Lomas MD Build And Release Manager (Electronically Signed)
--- NOTE | 2017-01-21 16:28 | PN ---
Subjective Date of Service: 01/21/17 - CC: Chest pain and back pain Interval History: Pt's chest pain completely resolved with stenting. Post stent bleed, hypotension and initiation of Levophed noted. The patient now c/o back pain, but states this is chronic due to spinal stenosis and does not feel different. Medications Active Medications: Acetaminophen (Tylenol Tab*) 650 mg PO Q6H PRN PRN Reason: FEVER/PAIN Albuterol (Ventolin 2.5 Mg/3 Ml Neb.Michaelle*) 2.5 mg INH Q2H PRN PRN Reason: SOB/WHEEZING Aspirin (Aspirin Low Dose Tab*) 81 mg PO DAILY [facility] Carvedilol (Coreg Tab*) 6.25 mg PO BID [facility] Clopidogrel Bisulfate (Plavix Tab*) 75 mg PO DAILY [facility] Last Admin: 01/21/17 09:38 Dose: 75 mg Diltiazem HCl (Cardizem Cd Cap*) 240 mg PO DAILY [facility] Last Admin: 01/21/17 09:38 Dose: 240 mg Docusate Sodium (Colace Cap*) 200 mg PO BID [facility] Last Admin: 01/21/17 09:38 Dose: 200 mg Fentanyl Citrate (Fentanyl*) 25 mcg IV Q2H PRN PRN Reason: PAIN Heparin Sodium (Porcine) (Heparin Vial(*)) 5,000 units SUBCUT Q8HR [facility] Last Admin: 01/21/17 15:02 Dose: 5,000 units Hydralazine HCl (Apresoline Iv*) 10 mg IV Q4H PRN PRN Reason: Systolic >170 Last Admin: 01/19/17 22:15 Dose: 10 mg Sodium Chloride (Ns 0.9% 1000 Ml*) 1,500 mls @ 100 mls/hr IV ONCE ONE Stop: 01/22/17 02:59 Last Admin: 01/21/17 13:22 Dose: 100 mls/hr Lisinopril (Prinivil Tab*) 5 mg PO DAILY [facility] Melatonin (Melatonin (Nf)) 3 mg PO BEDTIME PRN; Protocol PRN Reason: Sleep Morphine Sulfate (Morphine Inj (Syringe)*) 2 mg IV Q4H PRN PRN Reason: PAIN - MILD Last Admin: 01/20/17 05:45 Dose: 2 mg Nitroglycerin (Nitroglycerin Tab 0.4 Mg*) 0.4 mg SL Q5M PRN PRN Reason: ANGINA Ondansetron HCl (Zofran Inj*) 4 mg IV Q6H PRN PRN Reason: NAUSEA Last Admin: 01/20/17 13:03 Dose: 4 mg Oxycodone HCl (Roxycodone Tab*) 2.5 mg PO Q4H PRN PRN Reason: PAIN Oxycodone/Acetaminophen (Percocet 5/325 Tab*) 1 tab PO Q6H PRN PRN Reason: PAIN Last Admin: 01/21/17 15:03 Dose: 1 tab Pantoprazole Sodium (Protonix Tab (Nf)) 20 mg PO DAILY@0600 [facility] Last Admin: 01/21/17 06:39 Dose: 20 mg Objective Vital Signs: Temp Pulse Resp BP Pulse Ox 96.4 F 69 21 104/66 80 01/21/17 13:07 01/21/17 15:06 01/21/17 15:06 01/21/17 15:00 01/21/17 15:06 Oxygen Devices in Use Now: Nasal Cannula Appearance: pale, overweight, lying flat, jovial. Eyes: PERRLA Ears/Nose/Mouth/Throat: Clear Oropharnyx, Mucous Membranes Moist Neck: NL Appearance and Movements; NL JVP, No Thyroid Enlargement, Masses Respiratory: Symmetrical Chest Expansion and Respiratory Effort, Clear to Auscultation - laterally Cardiovascular: NL Sounds; No Murmurs; No JVD, RRR Extremities: No Edema Neurological: Alert and Oriented x 3 Lines/Tubes/Other Access: Clean, Dry and Intact Peripheral IV Laboratory Results: INR (Anticoag Therapy) 1.25 (0.89-1.11) H 01/19/17 20:23 APTT 48.3 seconds (26.0-36.3) H 01/19/17 23:38 Total Bilirubin 0.60 mg/dL (0.2-1.0) 01/19/17 20:23 AST 20 U/L (13-39) 01/19/17 20:23 ALT 18 U/L (7-52) 01/19/17 20:23 Alkaline Phosphatase 43 U/L (34-104) 01/19/17 20:23 CK-MB (CK-2) 9.6 ng/mL (0.6-6.3) H 01/21/17 13:00 Total Protein 7.5 g/dL (6.4-8.9) 01/19/17 20:23 Albumin 3.9 g/dL (3.2-5.2) 01/19/17 20:23 Globulin 3.6 g/dL (2-4) 01/19/17 20:23 Albumin/Globulin Ratio 1.1 (1-3) 01/19/17 20:23 01/21/17 01/21/17 13:00 15:00 Troponin I 0.96 H* 1.18 H* Diagnostic Imaging: cath reviewed: very tight LAD lesion proximally and a tight lesion in LAD more distally with [address] Mcdonough. Assessment/Plan 81 yo male with chronic afib, HTN, dyslipidemia admitted with anginal CP, mild bump in trops, abnormal ECG with very tight LAD lesions stented and now CP free. Post procedure period complicated by femoral artery bleed, hypotension and the patient has back pain. CAD: -Antiplatlet agents post stent. -LDL elevation and statin intolerence, consider PCSK9 inhibitor as outpatient. Hypotension: -Levophed for now, hold rate lowering/BP lowering medications for now until BP stabilizes. AFib -Hold Pradaxa due to bleed and DAPT for now, reassess daily. Does need to be resumed for stroke prevention once bleeding on groin stable. -If rate increases due to holding medications, OK to try digoxen short term. CM: -Per Dr. Mcdonough anterior wall hypokinesis on Vgram pre stent. Beta blockers preferred to diltiazem for rate lowering of afib. Back Pain: -Low index for CT to evaluate for possible retroperitoneal bleed. The patient knows to tell the nurse if quality of back pain is different than his chronic pain.
[2017-01-21 16:30] LABS: Hematocrit 40 % (42-52); Hemoglobin 13.2 g/dl (14.0-18.0); Mean Corpuscular HGB Conc 33 g/dl (31-36); Mean Corpuscular Hemoglobin 32 pg (27-31); Mean Corpuscular Volume 97 fL (80-94); Mean Platelet Volume 9 um3 (7.4-10.4); Red Blood Count 4.14 10^6/ul (4.0-5.4); Red Cell Distribution Width 14 % (10.5-15); White Blood Count 6.8 10^3/ul (3.5-10.8)
[2017-01-21 20:47] LABS: Hematocrit 39 % (42-52); Hemoglobin 12.9 g/dl (14.0-18.0)
[2017-01-21] MEDS ORDERED: Carvedilol TAB* 6.25 MG PO SCH (21:00)
[2017-01-21] MEDS: CMCS: Melatonin (NF) 3 MG TAB PO PRN (22:01)
[2017-01-22] MEDS: Heparin VIAL(*) 5000 UNITS/ML VIAL (FIVE THOUSAND) SUBCUT SCH ×3 (06:08→21:36)
[2017-01-22 07:12] LABS: Hematocrit 37 % (42-52); Hemoglobin 12.7 g/dl (14.0-18.0); Mean Corpuscular HGB Conc 34 g/dl (31-36); Mean Corpuscular Hemoglobin 33 pg (27-31); Mean Corpuscular Volume 96 fL (80-94); Mean Platelet Volume 10 um3 (7.4-10.4); Red Blood Count 3.89 10^6/ul (4.0-5.4); Red Cell Distribution Width 14 % (10.5-15); White Blood Count 7.4 10^3/ul (3.5-10.8)
[2017-01-22 07:16] LABS: Albumin 3.3 g/dL (3.2-5.2); BUN/Creatinine Ratio 14.6 (8-20); Calcium 8.8 mg/dL (8.6-10.3); EGFR African American 96.9 (>60); EGFR Non-African American 75.4 (>60); Globulin 3.1 g/dL (2-4); HDL Cholesterol 26.3 mg/dL; Potassium 3.9 mmol/L (3.5-5.0); Total Bilirubin 0.7 mg/dL (0.2-1.0); Total Protein 6.4 g/dL (6.4-8.9)
[2017-01-22] MEDS: Diltiazem CD CAP* 240 MG PO SCH (08:06)
[2017-01-22] MEDS: Lisinopril TAB* 5 MG PO SCH (08:06)
--- NOTE | 2017-01-22 08:14 | PN ---
Subjective Date of Service: 01/22/17 Interval History: Patient offers no acute complaints from overnight. He was hypotensive yesterday afternoon, requiring levophed which has since been titrated to off. sBP has stay ~115 mmHg overnight. No significant tachycardia. No complaints of CP. He has his usual chronic back pain, but no change in quality or severity. Occasional cough, no SOB. No abd pain, n/v. Some pain at his cath site at the R groin. Objective Active Medications: Acetaminophen (Tylenol Tab*) 650 mg PO Q6H PRN PRN Reason: FEVER/PAIN Albuterol (Ventolin 2.5 Mg/3 Ml Neb.Michaelle*) 2.5 mg INH Q2H PRN PRN Reason: SOB/WHEEZING Aspirin (Aspirin Low Dose Tab*) 81 mg PO DAILY [facility] Carvedilol (Coreg Tab*) 6.25 mg PO 899,2099 [facility] Clopidogrel Bisulfate (Plavix Tab*) 75 mg PO DAILY [facility] Last Admin: 01/21/17 09:38 Dose: 75 mg Diltiazem HCl (Cardizem Cd Cap*) 240 mg PO DAILY [facility] Last Admin: 01/22/17 08:06 Dose: Not Given Docusate Sodium (Colace Cap*) 200 mg PO BID [facility] Last Admin: 01/21/17 21:32 Dose: 200 mg Fentanyl Citrate (Fentanyl*) 25 mcg IV Q2H PRN PRN Reason: PAIN Heparin Sodium (Porcine) (Heparin Vial(*)) 5,000 units SUBCUT Q8HR [facility] Last Admin: 01/22/17 06:08 Dose: 5,000 units Hydralazine HCl (Apresoline Iv*) 10 mg IV Q4H PRN PRN Reason: Systolic >170 Last Admin: 01/19/17 22:15 Dose: 10 mg Lisinopril (Prinivil Tab*) 5 mg PO DAILY [facility] Last Admin: 01/22/17 08:06 Dose: Not Given Melatonin (Melatonin (Nf)) 3 mg PO BEDTIME PRN; Protocol PRN Reason: Sleep Last Admin: 01/21/17 22:01 Dose: 3 mg Morphine Sulfate (Morphine Inj (Syringe)*) 2 mg IV Q4H PRN PRN Reason: PAIN - MILD Last Admin: 01/20/17 05:45 Dose: 2 mg Nitroglycerin (Nitroglycerin Tab 0.4 Mg*) 0.4 mg SL Q5M PRN PRN Reason: ANGINA Ondansetron HCl (Zofran Inj*) 4 mg IV Q6H PRN PRN Reason: NAUSEA Last Admin: 01/20/17 13:03 Dose: 4 mg Oxycodone HCl (Roxycodone Tab*) 2.5 mg PO Q4H PRN PRN Reason: PAIN Oxycodone/Acetaminophen (Percocet 5/325 Tab*) 1 tab PO Q6H PRN PRN Reason: PAIN Last Admin: 01/21/17 15:03 Dose: 1 tab Pantoprazole Sodium (Protonix Tab (Nf)) 20 mg PO DAILY@0600 [facility] Last Admin: 01/21/17 06:39 Dose: 20 mg Vital Signs: Temp Pulse Resp BP Pulse Ox 97.4 F 98 23 118/81 99 01/22/17 07:40 01/22/17 08:01 01/22/17 08:01 01/22/17 08:01 01/22/17 08:01 Oxygen Devices in Use Now: Nasal Cannula Appearance: Well appearing 81 yo gentleman who appears younger than stated age who is smiling and very pleasant Respiratory: Symmetrical Chest Expansion and Respiratory Effort, Clear to Auscultation Cardiovascular: NL Sounds; No Murmurs; No JVD, - - irregular Abdominal: NL Sounds; No Tenderness; No Distention Extremities: No Edema Skin: - - some ecchymosis around the R groin site, no significant swelling Neurological: Alert and Oriented x 3 Result Diagrams: 01/22/17 06:22 01/22/17 06:22 Additional Lab and Data: . Diagnostic Imaging: CXR - NAD EKG - afib, no ischemic changes Nuc stress test - moderate anteroapical defect which appears to be mostly ischemic Assess/Plan/Problems-Billing Assessment: This is an 81 yo male with chronic afib, CAD, HTN, HLD, KYLE and h/o CVA who presented with c/o CP. - Patient Problems (1) CAD (coronary artery disease) Comment: Positive stress test Cath 01/[address] Ortega showed 95% mid LAD lesion and 75% distal lesion with 2 stents placed ASA continued, started on Plavix Increased carvediolol for improved rate control Ordered KOLE-I which has been held for hypotension, will start when he can tolerate Patient reports intolerance to multiple statins, he is unwilling to trial another agent Will start Zetia, he may be a good candidate for a PCSK9 inhibitor (2) Hypotension Comment: Resolved Hypotensive post cath, briefly required levophed, now off Hgb stable (3) Afib Comment: Chronic Rate controlled Anticoagulated with Pradaxa which has been held for the cath and will resume when okayed by interventionalist (4) KYLE (obstructive sleep apnea) Comment: Compliant with CPAP (5) H/O: CVA (cerebrovascular accident) Comment: No sig residual deficit (6) HTN (hypertension) Comment: Hypotensive yesterday afternoon, now normotensive Continuing carvedilol for HR control, remainder of antihypertensives to be held at this time (7) HLD (hyperlipidemia) Comment: Statin intolerant Fasting lipid panel shows LDL ~100 mg/dl See discussion above Starting Zetia Recommend PCSK9 inhibitor to be addressed by Dr Valle (8) Pacemaker (9) Full code status (10) DVT prophylaxis Comment: SQ heparin until Pradaxa resumed Status and Disposition: Inpatient. Now admitted to ICU post cardiac catheterization
[2017-01-22] MEDS: Docusate CAP* 100 MG PO SCH ×2 (08:21→21:37)
[2017-01-22] MEDS: Clopidogrel TAB* 75 MG PO SCH (08:22)
[2017-01-22] MEDS: Carvedilol TAB* 6.25 MG PO SCH ×2 (08:22→21:37)
[2017-01-22] MEDS: Aspirin Low Dose CHEW TAB* 81 MG PO SCH (08:22)
--- NOTE | 2017-01-22 08:48 | PN ---
Progress Note - Progress Note Date of Service: 01/22/17 Note: Progress Note - Critical Care 24 hour events: -off levophed, no chest pain/sob/n/v/dizziness -BP stable in 110s now Tele: afib, rate controlled Vitals: Vital Signs Temp 97.4 F 01/22/17 07:40 Pulse 98 01/22/17 08:01 Resp 23 01/22/17 08:01 BP 118/81 01/22/17 08:01 Pulse Ox 99 01/22/17 08:01 Intake & Output 01/21/17 01/22/17 01/22/17 18:59 06:59 18:59 Intake Total 2740 1366.1 Output Total 600 Balance 2740 766.1 Weight 224 lb 13.944 oz Intake: IV Fluids 1274 650 NS (0.9%) 1274 650 Medicated IV 21 16.1 CC - Norepinephrine/ 21 16.1 Levophed Oral 920 700 [place] Amount 525 Output: Urine 600 O2/Vent: RA, sat 100% Infusions: heplock Current Medications: Acetaminophen (Tylenol Tab*) 650 mg PO Q6H PRN PRN Reason: FEVER/PAIN Albuterol (Ventolin 2.5 Mg/3 Ml Neb.Michaelle*) 2.5 mg INH Q2H PRN PRN Reason: SOB/WHEEZING Aspirin (Aspirin Low Dose Tab*) 81 mg PO DAILY [facility] Last Admin: 01/22/17 08:22 Dose: 81 mg Carvedilol (Coreg Tab*) 6.25 mg PO 0900,2100 [facility] Last Admin: 01/22/17 08:22 Dose: 6.25 mg Clopidogrel Bisulfate (Plavix Tab*) 75 mg PO DAILY [facility] Last Admin: 01/22/17 08:22 Dose: 75 mg Docusate Sodium (Colace Cap*) 200 mg PO BID [facility] Last Admin: 01/22/17 08:21 Dose: 200 mg Fentanyl Citrate (Fentanyl*) 25 mcg IV Q2H PRN PRN Reason: PAIN Heparin Sodium (Porcine) (Heparin Vial(*)) 5,000 units SUBCUT Q8HR [facility] Last Admin: 01/22/17 06:08 Dose: 5,000 units Hydralazine HCl (Apresoline Iv*) 10 mg IV Q4H PRN PRN Reason: Systolic >170 Last Admin: 01/19/17 22:15 Dose: 10 mg Lisinopril (Prinivil Tab*) 5 mg PO DAILY [facility] Last Admin: 01/22/17 08:06 Dose: Not Given Melatonin (Melatonin (Nf)) 3 mg PO BEDTIME PRN; Protocol PRN Reason: Sleep Last Admin: 01/21/17 22:01 Dose: 3 mg Morphine Sulfate (Morphine Inj (Syringe)*) 2 mg IV Q4H PRN PRN Reason: PAIN - MILD Last Admin: 01/20/17 05:45 Dose: 2 mg Nitroglycerin (Nitroglycerin Tab 0.4 Mg*) 0.4 mg SL Q5M PRN PRN Reason: ANGINA Ondansetron HCl (Zofran Inj*) 4 mg IV Q6H PRN PRN Reason: NAUSEA Last Admin: 01/20/17 13:03 Dose: 4 mg Oxycodone HCl (Roxycodone Tab*) 2.5 mg PO Q4H PRN PRN Reason: PAIN Oxycodone/Acetaminophen (Percocet 5/325 Tab*) 1 tab PO Q6H PRN PRN Reason: PAIN Last Admin: 01/21/17 15:03 Dose: 1 tab Pantoprazole Sodium (Protonix Tab (Nf)) 40 mg PO DAILY@0600 [facility] Physical Exam: General: awake, alert, no distress, no diaphoresis Head: normocephalic, atraumatic HEENT: no pallor, no icterus, moist mucous membranes Neck: soft, supple, no jvd, no stridor CVS: irregular, normal reate, no murmur Resp: bilateral air entry, no rhales, no wheeze Abdomen: soft, nontender, nondistended, bowel sounds present Ext: pulses+, warm, no edema; right femoral site/upper thigh with eccymosis now , hematoma improved and far smaller and less palpable, no tenderness, pulses+ Skin: intact; rigth upper thigh eccymosis as above Neuro: awake, alert, orientedx3, moving all extremities Labs: Laboratory Results - last 24 hr 01/21/17 01/21/17 01/21/17 13:00 13:00 15:00 WBC RBC Hgb Hct MCV MCH MCHC RDW Plt Count MPV Neut % (Auto) Lymph % (Auto) [place] % (Auto) Eos % (Auto) Baso % (Auto) Absolute Neuts (auto) Absolute Lymphs (auto) Absolute Monos (auto) Absolute Eos (auto) Absolute Basos (auto) Absolute Nucleated RBC Nucleated RBC % Sodium Potassium Chloride Carbon Dioxide Anion Gap BUN Creatinine Est GFR ( Amer) Est GFR (Non-Af Amer) BUN/Creatinine Ratio Glucose Calcium Total Bilirubin AST ALT Alkaline Phosphatase CK-MB (CK-2) 9.6 H Troponin I 0.96 H* 1.18 H* Total Protein Albumin Globulin Albumin/Globulin Ratio Triglycerides Cholesterol LDL Cholesterol HDL Cholesterol 01/21/17 01/21/17 01/21/17 16:05 20:40 20:40 WBC 6.8 RBC 4.14 Hgb 13.2 L 12.9 L Hct 40 L 39 L MCV 97 H MCH 32 H MCHC 33 RDW 14 Plt Count 239 MPV 9 Neut % (Auto) Lymph % (Auto) [place] % (Auto) Eos % (Auto) Baso % (Auto) Absolute Neuts (auto) Absolute Lymphs (auto) Absolute Monos (auto) Absolute Eos (auto) Absolute Basos (auto) Absolute Nucleated RBC Nucleated RBC % Sodium Potassium Chloride Carbon Dioxide Anion Gap BUN Creatinine Est GFR ( Amer) Est GFR (Non-Af Amer) BUN/Creatinine Ratio Glucose Calcium Total Bilirubin AST ALT Alkaline Phosphatase CK-MB (CK-2) 13.7 H Troponin I Total Protein Albumin Globulin Albumin/Globulin Ratio Triglycerides Cholesterol LDL Cholesterol HDL Cholesterol 01/22/17 01/22/17 06:22 06:22 WBC 7.4 RBC 3.89 L Hgb 12.7 L Hct 37 L MCV 96 H MCH 33 H MCHC 34 RDW 14 Plt Count 181 MPV 10 Neut % (Auto) 64.1 Lymph % (Auto) 25.5 [place] % (Auto) 9.1 H Eos % (Auto) 1.0 Baso % (Auto) 0.3 Absolute Neuts (auto) 4.7 Absolute Lymphs (auto) 1.9 Absolute Monos (auto) 0.7 Absolute Eos (auto) 0.1 Absolute Basos (auto) 0 Absolute Nucleated RBC 0.01 Nucleated RBC % 0.1 Sodium 136 Potassium 3.9 Chloride 106 Carbon Dioxide 24 Anion Gap 6 BUN 14 Creatinine 0.96 Est GFR ( Amer) 96.9 Est GFR (Non-Af Amer) 75.4 BUN/Creatinine Ratio 14.6 Glucose 94 Calcium 8.8 Total Bilirubin 0.70 AST 25 ALT 15 Alkaline Phosphatase 42 CK-MB (CK-2) Troponin I Total Protein 6.4 Albumin 3.3 Globulin 3.1 Albumin/Globulin Ratio 1.1 Triglycerides 87 Cholesterol 146 LDL Cholesterol 102 HDL Cholesterol 26.3 Imaging: - Assessment: 81y M w/pmhx of Afib on AC, HTN, s/p PPM, CAD with 50% LAD lesions 2005 Cath, KYLE, CVA; presents to ER 01/19 with 10 days of chest pain during a cruise trip associated with near-syncopal feelings. Patient admitted for unstable angina. Today he had a cardiac cath demonstrating 95% LAD and 75% distal LAD lesions, s/p PCI x2 CAROL. Post procedure developed femoral site hematoma, associated with hypotension. -Unstable Angina -CAD s/p mid-LAD and distal LAD PCI x2 CAROL 01/21 -Hypotension, suspect hypovolemic shock; resolved -Atrial fibrillation, rate controlled Plan: Neuro- stable CVS- off pressors. off IVF. BP stable now, HR 80s, rate controlled afib. h/h stable, small drop from 14.3 to 12.7. hematoma smaller. shock resolved. can restart asa/plavix. cont zetia. restart coreg/acei as tolerated. Pradaxa restart as per cardiology. Resp- RA, no distress ID- afebrile. Wbc normal. GI- cardiac diet. Renal- Cr normal. K normal, no acidosis. Heme- noted small drop in h/h but off pressors and hematoma smaller. DAPT post CAD/stents. Endo- none Musculsk- right fem hematoma stable/smaller. can go oob to chair today Wounds- none Nutrition- cardiac diet DVT prophylaxis: - GI prophylaxis: - Central Line: - Arterial Line: - Mcclendon Cathetor: - Disposition: ICU post cath for hypotension/hematoma, resolved now. CC to sign off for now, hemodyn stable, reconsult if change in status. Code Status: full code Andres Lomas MD Administrative Appeals [employer] Member (Electronically Signed)
--- NOTE | 2017-01-22 20:15 | CATH ---
CC: Basim Valle MD; Na Araujo MD * CARDIAC CATHETERIZATION INTERVENTIONAL REPORT: DATE OF PROCEDURE: 01/21/17 - ROOM #[id number] REASON FOR THE PROCEDURE: The patient with acute coronary syndrome and markedly abnormal nuclear stress test suggesting severe reversible ischemia to the anterior wall. PROCEDURE: Coronary arteriography, left heart catheterization, left ventriculography, balloon angioplasty and placement of a 2.5 x 20 mm long Synergy drug-eluting stent overlapped more proximally with a 2.75 x 8 mm long Synergy drug- eluting stent with the proximal and mid area of the stented region , postdilated to 3.0 to 3.2 mm. DESCRIPTION OF PROCEDURE: The patient was interviewed and examined on the floor of the hospital where the risks and benefits were explained. He understood them and wished to proceed. He was brought down to the cardiovascular laboratory where a formal time-out was performed. The right radial artery assessed under ultrasound and found to be small in caliber for an approach. As such, the patient was prepped and draped in sterile fashion. The right groin area was anesthetized with 1% lidocaine, and the right femoral artery was cannulated and a 6-Barbadian 25 cm sheath was placed. Coronary arteriography was performed using a 5-Barbadian 4 Ferdinand left coronary catheter and 5-Barbadian 4 Ferdinand right coronary catheter. Central aortic pressure was recorded using a 5-Barbadian pigtail catheter advanced to the ascending aorta. The catheter was then passed across the aortic valve into the left ventricle where left ventricular pressure was recorded. Left ventriculography was performed utilizing a total of 28 cc of Omnipaque dye at a rate of 14 cc per second. Following this, the catheter was pulled back across the aortic valve to recheck gradient. Following this, decision was made to intervene into the critical mid LAD territory. An ACT was drawn and found to be subtherapeutic. As such, an Angiomax bolus was given and Angiomax drip was started. A 190 cm length Surefield guidewire was advanced down the left anterior descending artery and a balloon angioplasty was performed to the mid segment with a 2.5 x 12 mm long Emerge balloon. Following this, the 2.5 x 20 mm long Synergy drug-eluting stent was deployed in the mid area. This was then overlapped with a 2.75 x 8 mm long Synergy drug-eluting stent. Intracoronary nitroglycerin was given. Balloon angioplasty was then performed in the distal stent utilizing 2.5 x 8 mm NC Emerge balloon to high pressures. Following this, a 3.0 x 8 mm long NC Emerge balloon was dilated in the more proximal to mid segment of the stented area with a 3.0 x 8 mm long NC Emerge balloon. Following this, the artery was assessed both with the wire in place and the wire removed. Following this, an injection was made into the right femoral arterial sheath after the long sheath was exchanged for a 6.5-Barbadian short sheath. It was found to be acceptable for a closure device and as such, a 6/7 Barbadian Mynx closure device was deployed with good hemostasis. The total contrast used was 160 cc of Omnipaque dye. The radiation exposure includes 15 minutes of fluoro time. The air kerma radiation was 1846 milligray , the DAP radiation was 9830 microgray per sq. m. RESULTS: HEMODYNAMIC DATA: Left heart catheterization - central aortic pressure recorded at 130/81 with mean of 101 (with the patient in atrial fibrillation, the pressure was variable beat to beat), left ventricle 130 over left ventricular end diastolic pressure of 14 to 16. LEFT VENTRICULOGRAPHY: Performed in the CHANCE projection revealed hyperdynamic contraction of the mid- to-proximal inferior wall and the proximal anterior wall. The mid anterior and apical wall and very distal inferior wall were akinetic. The [id number] inferior wall was hypokinetic. The overall ejection fraction was estimated at approximately 35% to 40%. CORONARY ARTERIOGRAPHY: A. Left coronary artery: 1. Left main - long in nature with mild distal narrowing of 10% to 15%. 2. Left anterior descending artery - the left anterior descending artery was noted to have a critical 95% to 99% lesion in its mid portion just prior to the mid diagonal branch. Past this point was another hazy lesion, which appeared to be approximately 75% to 80% in its worst view. Continuation of the LAD was small in caliber vessel size that appeared to be less than 1.7 mm and appeared to be somewhat intramyocardial. 3. Circumflex artery - non-dominant vessel with a bifurcating trifurcation branch (possibly high 1st diagonal branch. Past this the circumflex supplied a thin first obtuse marginal branch followed by a mid and low lying obtuse marginal branch. There wass a 50-60 % mid circumflex lesion in it's worst view. B. Right coronary artery - a dominant vessel supplying the PDA and 2 posterior left ventricular branches. There was diffuse disease throughout the proximal and mid portion with irregularities in the mid portion as much as 30% to 35%. There was a distinct tapering of the vessel just prior to the posterior descending artery with a degree of narrowing noted to be as much as 65 % to 75%. The PDA itself had an ostial narrowing of about 45%. The proximal to mid portion had an area of 60% narrowing noted. Of note, this vessel is small in caliber, perhaps at the most just 2 mm. Past this point, the second posterior left ventricular branch was small in caliber and had an ostial narrowing of 85%. INTERVENTION INTO MID LEFT ANTERIOR DESCENDING ARTERY SEQUENTIAL LESIONS: Successful reduction of critical 95% to 99% obstruction followed by a 75% to 80% obstruction with balloon angioplasty and placement of a 2.5 x 20 mm long Synergy drug-eluting stent overlapped more proximally by a 2.75 x 8 mm long Synergy drug- eluting stent postdilated in the mid to proximal area of the stented region to 3.1 mm and distally to 2.65 mm with CHIDI-3 flow, no dissection seen and 0% residual stenosis. OVERALL ASSESSMENT: Successful intervention into mid LAD as described as above with overlapping drug-eluting stents placed. The patient should be maintained on dual- antiplatelet therapy for a minimum of a year's time. The patient has a history of atrial fibrillation and will need to be restarted on Pradaxa at some point in time pending stability of the wound site over the next 24 to 72 hours. Consideration for institution of KOLE inhibitor therapy will be reasonable in light of his left ventricular systolic dysfunction and will be left to the primary manager it training involved with the case. [id number]/[facility] #: [id number] KARIME
[2017-01-22] MEDS: CMCS: Melatonin (NF) 3 MG TAB PO PRN (21:38)
[2017-01-22] MEDS: Acetaminophen TAB* 325 MG PO PRN (21:38)
[2017-01-23] MEDS: Heparin VIAL(*) 5000 UNITS/ML VIAL (FIVE THOUSAND) SUBCUT SCH (06:25)
[2017-01-23] MEDS: CMCS Pantoprazole TAB (NF) 40 MG TAB PO SCH ×2 (06:25→09:04)
[2017-01-23] MEDS: Docusate CAP* 100 MG PO SCH ×2 (08:01→21:07)
[2017-01-23] MEDS: Clopidogrel TAB* 75 MG PO SCH (08:01)
[2017-01-23] MEDS: Lisinopril TAB* 5 MG PO SCH (08:02)
[2017-01-23] MEDS: Aspirin Low Dose CHEW TAB* 81 MG PO SCH (08:02)
[2017-01-23] MEDS: Carvedilol TAB* 6.25 MG PO SCH ×2 (08:02→21:04)
[2017-01-23] MEDS: CMCS Dabigatran CAP(NF) 150 MG CAP PO SCH ×2 (08:05→21:07)
[2017-01-23] MEDS ORDERED: NS 0.9% 1000 ML* 1,000 ML IV ONE (10:45)
[2017-01-23] MEDS: NS 0.9% 1000 ML* 1,000 ML IV SCH (16:54)
--- NOTE | 2017-01-23 18:02 | PN ---
Subjective Date of Service: 01/23/17 Interval History: Patient feels much better today. No complaint of CP, SOB. Patient had some dizziness on standing. Orthostatic vital signs negative. Improved after fluids. No other symptoms or syncope. No N/V, abdominal pain, F/C, Dysuria, or other pain. No changes in back pain from chronic state. Family History: Unchanged from Admission Social History: Unchanged from Admission Past Medical History: Unchanged from Admission Objective Active Medications: Acetaminophen (Tylenol Tab*) 650 mg PO Q6H PRN PRN Reason: FEVER/PAIN Last Admin: 01/22/17 21:38 Dose: 650 mg Albuterol (Ventolin 2.5 Mg/3 Ml Neb.Michaelle*) 2.5 mg INH Q2H PRN PRN Reason: SOB/WHEEZING Aspirin (Aspirin Low Dose Tab*) 81 mg PO DAILY [facility] Last Admin: 01/23/17 08:02 Dose: 81 mg Carvedilol (Coreg Tab*) 6.25 mg PO 0900,2100 [facility] Last Admin: 01/23/17 08:02 Dose: 6.25 mg Clopidogrel Bisulfate (Plavix Tab*) 75 mg PO DAILY [facility] Last Admin: 01/23/17 08:01 Dose: 75 mg Dabigatran (Pradaxa Cap(Nf)) 150 mg PO BID [facility] Last Admin: 01/23/17 08:05 Dose: 150 mg Docusate Sodium (Colace Cap*) 200 mg PO BID [facility] Last Admin: 01/23/17 08:01 Dose: 200 mg Fentanyl Citrate (Fentanyl*) 25 mcg IV Q2H PRN PRN Reason: PAIN Hydralazine HCl (Apresoline Iv*) 10 mg IV Q4H PRN PRN Reason: Systolic >170 Last Admin: 01/19/17 22:15 Dose: 10 mg Sodium Chloride (Ns 0.9% 1000 Ml*) 1,000 mls @ 125 mls/hr IV PER RATE [facility] Last Admin: 01/23/17 16:54 Dose: 125 mls/hr Lisinopril (Prinivil Tab*) 5 mg PO DAILY [facility] Last Admin: 01/23/17 08:02 Dose: 5 mg Melatonin (Melatonin (Nf)) 3 mg PO BEDTIME PRN; Protocol PRN Reason: Sleep Last Admin: 01/22/17 21:38 Dose: 3 mg Morphine Sulfate (Morphine Inj (Syringe)*) 2 mg IV Q4H PRN PRN Reason: PAIN - MILD Last Admin: 01/20/17 05:45 Dose: 2 mg Nitroglycerin (Nitroglycerin Tab 0.4 Mg*) 0.4 mg SL Q5M PRN PRN Reason: ANGINA Ondansetron HCl (Zofran Inj*) 4 mg IV Q6H PRN PRN Reason: NAUSEA Last Admin: 01/20/17 13:03 Dose: 4 mg Oxycodone HCl (Roxycodone Tab*) 2.5 mg PO Q4H PRN PRN Reason: PAIN Oxycodone/Acetaminophen (Percocet 5/325 Tab*) 1 tab PO Q6H PRN PRN Reason: PAIN Last Admin: 01/21/17 15:03 Dose: 1 tab Pantoprazole Sodium (Protonix Tab (Nf)) 40 mg PO DAILY@0600 [facility] Last Admin: 01/23/17 06:25 Dose: 40 mg Vital Signs 01/22/17 01/22/17 01/22/17 18:00 18:30 19:00 Temperature Pulse Rate 101 95 Respiratory 18 18 25 Rate Blood Pressure 134/90 116/79 (mmHg) O2 Sat by Pulse 97 97 Oximetry 01/22/17 01/22/17 01/22/17 19:08 19:30 20:00 Temperature 98.7 F Pulse Rate 98 100 103 Respiratory 26 24 13 Rate Blood Pressure 137/87 110/77 126/72 (mmHg) O2 Sat by Pulse 95 94 96 Oximetry 01/22/17 01/22/17 01/22/17 20:30 21:00 21:30 Temperature Pulse Rate 97 100 99 Respiratory 19 19 10 Rate Blood Pressure 134/90 117/82 127/88 (mmHg) O2 Sat by Pulse 98 97 98 Oximetry 01/22/17 01/22/17 01/22/17 22:00 22:30 22:54 Temperature Pulse Rate 100 102 99 Respiratory 16 22 15 Rate Blood Pressure 113/69 113/76 107/68 (mmHg) O2 Sat by Pulse 97 97 95 Oximetry 01/22/17 01/22/17 01/23/17 23:00 23:10 00:00 Temperature Pulse Rate 95 102 Respiratory 22 12 13 Rate Blood Pressure 115/78 (mmHg) O2 Sat by Pulse 95 96 Oximetry 01/23/17 01/23/1701/23/17 02:00 02:54 04:00 Temperature Pulse Rate 105 102 116 Respiratory 8 16 12 Rate Blood Pressure 132/78 130/90 (mmHg) O2 Sat by Pulse 96 95 98 Oximetry 01/23/17 01/23/17 01/23/17 05:23 06:00 08:00 Temperature Pulse Rate 143 113 117 Respiratory 18 16 16 Rate Blood Pressure 122/70 126/81 (mmHg) O2 Sat by Pulse 91 95 94 Oximetry 01/23/17 01/23/17 01/23/17 08:01 08:54 10:14 Temperature 98 F Pulse Rate 110 103 Respiratory 21 18 18 Rate Blood Pressure 129/81 133/80 (mmHg) O2 Sat by Pulse 97 98 Oximetry 01/23/17 01/23/17 01/23/17 10:55 11:18 11:20 Temperature 97.7 F Pulse Rate 111 108 103 Respiratory 18 Rate Blood Pressure 95/50 105/52 110/69 (mmHg) O2 Sat by Pulse 97 Oximetry 01/23/17 01/23/17 11:22 15:19 Temperature 97.6 F Pulse Rate 103 95 Respiratory 17 Rate Blood Pressure 106/61 116/70 (mmHg) O2 Sat by Pulse 99 Oximetry Oxygen Devices in Use Now: None Appearance: Patient is an 81yo who appears stated age and is sitting in the bed in [facility]. Eyes: No Scleral Icterus, PERRLA Ears/Nose/Mouth/Throat: NL Teeth, Lips, Gums, Clear Oropharnyx, Mucous Membranes Moist Neck: NL Appearance and Movements; NL JVP, Trachea Midline Respiratory: Symmetrical Chest Expansion and Respiratory Effort, Clear to Auscultation Cardiovascular: NL Sounds; No Murmurs; No JVD, RRR, No Edema Abdominal: NL Sounds; No Tenderness; No Distention, No Hepatosplenomegaly Lymphatic: No Cervical Adenopathy Extremities: No Edema, No Clubbing, Cyanosis Skin: No Nodules or Sclerosis, - - Significant ecchymosis on right side around femoral access site with no signs of increasing hematoma. Neurological: Alert and Oriented x 3, NL Sensation, NL Gait, NL Muscle Strength and Tone Result Diagrams: 01/22/17 06:22 01/22/17 06:22 Additional Lab and Data: . Diagnostic Imaging: CXR - NAD EKG - afib, no ischemic changes Nuc stress test - moderate anteroapical defect which appears to be mostly ischemic Assess/Plan/Problems-Billing Assessment: This is an 81 yo male with chronic afib, CAD, HTN, HLD, KYLE and h/o CVA who presented with c/o CP and had a cardiac cath with 2 stents which was then complicated by a access point bleed with hypotension which is still symptomatic. - Patient Problems (1) CAD (coronary artery disease) Current Visit: Yes Status: Acute Code(s): I25.10 - ATHSCL HEART DISEASE OF [place] CORONARY ARTERY W/O ANG PCTRS SNOMED Code(s): 15519538 Comment: Positive stress test Cath 01/[address] Ortega showed 95% mid LAD lesion and 75% distal lesion with 2 stents placed ASA continued, started on Plavix Increased carvediolol for improved rate control Ordered lisinopril at 5mg, still borderline hypotensive. Patient reports intolerance to multiple statins, he is unwilling to trial another agent Continue Zetia, consider PCSK9 inhibitor outpatient. Continue fluids to counteract possible hypovolemia induced tachycardia and increased myocardial demand. (2) Afib Current Visit: Yes Status: Acute Code(s): I48.91 - UNSPECIFIED ATRIAL FIBRILLATION SNOMED Code(s): 46436819 Comment: Chronic Rate increased between 90-110 generally. Unable to increase BB due to hypotension. Pradaxa resumed. (3) Chest pain Current Visit: Yes Status: Acute Code(s): R07.9 - CHEST PAIN, UNSPECIFIED SNOMED Code(s): 12779726 Comment: No recurrent CP. (4) H/O: CVA (cerebrovascular accident) Current Visit: Yes Status: Acute Code(s): Z86.73 - PRSNL HX OF TIA (TIA), AND CEREB INFRC W/O RESID DEFICITS SNOMED Code(s): 853854814 Comment: No sig residual deficit (5) HLD (hyperlipidemia) Current Visit: Yes Status: Acute Code(s): E78.5 - HYPERLIPIDEMIA, UNSPECIFIED SNOMED Code(s): 41719195 Comment: Statin intolerant Fasting lipid panel shows LDL ~100 mg/dl See discussion above Starting Zetia Recommend PCSK9 inhibitor to be addressed by Dr Valle (6) HTN (hypertension) Current Visit: Yes Status: Acute Code(s): I10 - ESSENTIAL (PRIMARY) HYPERTENSION SNOMED Code(s): 77746741 Comment: Hypotensive yesterday afternoon, now normotensive Continuing carvedilol for HR control, remainder of antihypertensives to be held at this time (7) KYLE (obstructive sleep apnea) Current Visit: Yes Status: Acute Code(s): G47.33 - OBSTRUCTIVE SLEEP APNEA ( ADULT) (PEDIATRIC) SNOMED Code(s): 24817295 Comment: Compliant with CPAP (8) Hypotension Current Visit: Yes Status: Acute Comment: Borderline hypotensive, dizzy on standing with tachycardia but no hypotension. Hypotensive post cath, briefly required levophed, now off Hgb stable, no signs of continued bleeding. (9) DVT prophylaxis Current Visit: Yes Status: Acute Code(s): WKJ1570 - SNOMED Code(s): 772357780 Comment: Pradaxa (10) Full code status Current Visit: Yes Status: Acute Code(s): Z78.9 - OTHER SPECIFIED HEALTH STATUS SNOMED Code(s): 768534236 Status and Disposition: Inpatient. Discharge tomorrow if remains asymptomatic.
[2017-01-23] MEDS: Acetaminophen TAB* 325 MG PO PRN (21:05)
[2017-01-23] MEDS: CMCS: Melatonin (NF) 3 MG TAB PO PRN (21:06)
[2017-01-24] MEDS: NS 0.9% 1000 ML* 1,000 ML IV SCH (01:22)
[2017-01-24] MEDS: CMCS Pantoprazole TAB (NF) 40 MG TAB PO SCH (05:18)
[2017-01-24 06:37] LABS: Hematocrit 35 % (42-52); Hemoglobin 11.5 g/dl (14.0-18.0)
[2017-01-24 06:59] LABS: BUN/Creatinine Ratio 15.5 (8-20); Calcium 8.8 mg/dL (8.6-10.3); EGFR African American 95.8 (>60); EGFR Non-African American 74.5 (>60); Potassium 3.9 mmol/L (3.5-5.0)
[2017-01-24] MEDS: CMCS Dabigatran CAP(NF) 150 MG CAP PO SCH (08:51)
[2017-01-24] MEDS: Carvedilol TAB* 6.25 MG PO SCH (08:51)
[2017-01-24] MEDS: Aspirin Low Dose CHEW TAB* 81 MG PO SCH (08:51)
[2017-01-24] MEDS: Clopidogrel TAB* 75 MG PO SCH (08:51)
[2017-01-24] MEDS: Lisinopril TAB* 5 MG PO SCH (08:51)
[2017-01-24] MEDS: Docusate CAP* 100 MG PO SCH (08:51)
[2017-01-24] MEDS ORDERED: Carvedilol TAB* 6.25 MG PO ONE (09:46)
[2017-01-24 12:18] VITALS: BP 118/61
[2017-01-24] MEDS: Acetaminophen TAB* 325 MG PO PRN (12:32)
--- NOTE | 2017-01-24 13:52 | RAD ---
CLINICAL HISTORY: Unstable angina, evaluate for retroperitoneal bleed, history of cardiac catheterization COMPARISON: None TECHNIQUE: Multiple contiguous axial CT scans were obtained of the abdomen and pelvis, without intravenous contrast enhancement. Coronal and sagittal multiplanar reformations are submitted for review. Oral contrast was not administered. FINDINGS: The study is limited by the lack of intravenous contrast. This limits evaluation of the solid organs and vasculature. LUNG BASES: The lung bases are clear. LIVER: The liver is normal in shape, size, contour, and attenuation. BILE DUCTS: There is no intrahepatic or extrahepatic biliary dilatation. GALLBLADDER: Multiple gallstones are noted. There is no pericholecystic inflammatory change. PANCREAS: The pancreas is normal, without mass or ductal dilatation. SPLEEN: Normal in size and appearance. UPPER GI TRACT: Evaluation of the gastrointestinal tract is limited by incomplete gastric distention. The upper GI tract is unremarkable. SMALL BOWEL AND MESENTERY: The small bowel is normal in contour, course, and caliber. There is no obstruction or dilatation. COLON: There is extensive diverticulosis of the descending and sigmoid colon. There is a tubular, vermiform, hollow viscus that is blind ending, and originates from the cecum, consistent with a normal appendix. There is no periappendiceal inflammatory change. ADRENALS: Normal bilaterally. KIDNEYS: The kidneys are normal in shape, size, contour, and axis. There is no hydronephrosis or nephrolithiasis. BLADDER: The bladder is smooth in contour. PELVIC ORGANS: The prostate is diffusely enlarged. The seminal vesicles are symmetric. AORTA: There is calcific atherosclerotic disease of the abdominal aorta and its branches, without aneurysmal dilatation IVC: Unremarkable LYMPH NODES: There is no lymphadenopathy by size criteria. ABDOMINAL WALL: There are bilateral fat-containing inguinal hernias. BONES AND SOFT TISSUES: Degenerative changes are noted. The patient is status post spinal fusion. There is stranding of the subcutis fat in the right inguinal region, without loculated fluid collection or extension into the retroperitoneum. OTHER: None IMPRESSION: 1. EXTENSIVE INFLAMMATORY CHANGE OF THE RIGHT INGUINAL REGION CONSISTENT WITH THE HISTORY OF HEMATOMA AFTER CATHETERIZATION. THERE IS NO LOCULATED FLUID COLLECTION. THERE IS NO RETROPERITONEAL EXTENSION. 2. DIVERTICULOSIS. 3. CHOLELITHIASIS. 4. ATHEROSCLEROSIS
[2017-01-24] MEDS ORDERED: Carvedilol TAB* 6.25 MG PO SCH (21:00)
--- NOTE | 2017-01-25 09:01 | DS ---
CC: Na Araujo MD; Dr. Ranjith Mcdonough; Dr. Basim Valle * DISCHARGE SUMMARY: DATE OF ADMISSION: 01/19/17 DATE OF DISCHARGE: 01/24/17 PRIMARY CARE DOCTOR: Na Araujo MD ATTENDING PHYSICIAN: Dr. Moshe Murphy. * (DCTATED BY KRYSTLE PAUL) CONSULTING PROVIDER: Dr. Oliverio Crawley of Cardiology; Dr. Maggie Rosen of Cardiology; Dr. Ranjith Mcdonough of Interventional Cardiology; Andres Lomas MD. PRIMARY DISCHARGE DIAGNOSES: NSTEMI with stent placement and femoral artery bleeding. SECONDARY DISCHARGE DIAGNOSES: 1. Coronary artery disease. 2. History of cardiovascular accident. 3. Hypertension. 4. Hyperlipidemia. 5. Chronic atrial fibrillation. 6. Obstructive sleep apnea. 7. Pseudo gout. 8. Pacemaker implantation. STUDIES DONE WHILE IN THE HOSPITAL: A chest x-ray from 01/19/17 read as no evidence for acute finding, pacemaker in place. Nuclear medicine scan from 09/29 read as there is a moderate-sized anteroapical defect which primarily represents an ischemic defect, low normal ejection fraction. Assessment, intermediate risk. EKG from 01/19/17 shows atrial fibrillation rate 84, no ST-segment changes. Normal axis. No enlargement or hypertrophy. No other abnormalities. EKG from 01/20/17 shows no significant changes from previous study except for possible diffuse ST- segment depression of approximately 1 mV in leads V2, V3, V4, and V5. EKG from 01/21/17 shows T-wave inversions in V1, V2, V3, V4, V5, and V6. Rate of 107, QTC of 547. Normal axis, no significant abnormalities. EKG from 01/22/17 shows persistent T-wave changes, but no other significant changes from previous study. EKG from 01/23/17 shows persistent T-wave changes, decreased QTC, no other abnormalities. EKG from 01/23/17 shows continued T-wave changes. No other significant changes. Abdomen and pelvis CT from 01/24/17 read as extensive inflammatory change at the right inguinal region consistent with history of hematoma after catheterization. There is no loculated fluid collection. There is no retroperitoneal extension, diverticulosis, cholelithiasis, or atherosclerosis. MEDICATIONS AT DISCHARGE: 1. Multivitamin. 2. Aspirin 81 mg p.o. daily. 3. Yessenia Allergy 180 mg p.o. daily as needed. 4. Nasonex 2 sprays both nares b.i.d. as needed. 5. Voltaren gel 1 application topical daily as needed. 6. Sunray 3 fatty acid 1200 mg p.o. b.i.d. 7. Aflibercept 1 mg p.o. daily as needed. 8. Tylenol 1000 mg p.o. b.i.d. as needed. 9. Glucosamine chondroitin 1 cap p.o. b.i.d. 10. Pradaxa 150 mg p.o. b.i.d. 11. Carvedilol 25 mg p.o. b.i.d. 12. Clopidogrel 700 mg p.o. daily. 13. Lisinopril 5 mg p.o. daily. 14. Nitroglycerin 0.4 mg sublingually q.5 minutes. 15. Pantoprazole 40 mg p.o. daily. New medications at discharge: 1. Carvedilol. 2. Clopidogrel. 3. Lisinopril. 4. Nitroglycerin. 5. Pantoprazole. Discontinued medications at discharge: 1. Diltiazem 240 mg p.o. daily. 2. Carvedilol 3.125 mg p.o. b.i.d. HOSPITAL COURSE: This is a brief summary of the patient's presentation. For more details please see the history and physical from Dr. Asaf Phillip on . In brief, the patient is an 81-year-old male with a history of coronary artery disease and 30% LAD lesion on a cath in 2005. The patient had chest pain worse with exertion, severe and substernal on a cruise accompanied with near syncope, but no other symptoms. No other provoking or palliating factors. The patient had no increased troponin in the emergency department. The patient was admitted for a stress test which was performed on 01/20/17 and read as above. Cardiology was consulted. For more details please see the consultation report from Dr. Oliverio Crawley on 01/20/17. Briefly, the patient was found to have a large area of ischemia. It was recommended the patient undergo a cardiac catheterization which was planned for 01/21/[address] Mcdonough. The patient continued to have mild chest pain in the hospital before his cardiac stress test, but was asymptomatic during the stress test. The patient was mildly hypertensive when he was first admitted to the hospital and was continued on his home medications. On 01/21/17, the patient underwent a cardiac catheterization with Dr. Ranjith Mcdonough, for more details please see the report from that day. In brief, the patient had an uneventful cardiac catheterization with 2 stents placed in the mid LAD. There were no other complications during the procedure. The patient had no complaints after the surgery and was hemodynamically stable. The patient's diltiazem was discontinued and his carvedilol was increased for rate control. The patient was started on a low-dose KOLE inhibitor and Zetia as he was intolerant to multiple statins. The patient's Pradaxa was held and was started on subcutaneous heparin until the Pradaxa was resumed. In the afternoon of it was noted that the patient was having a post-stent bleed and became hypotensive. Dr. Lomas, the front end developer designer was consulted by Dr. Mcdonough and his blood pressure dropped to the 50s systolic with no new chest pain or shortness of breath. Manual pressure was held on the hematoma site, 1 L IV bolus was given. Levophed was started and blood pressure improved. Hematoma was stabilized and marked. The patient was unable to be weaned off pressors right away. The patient's H and H remained stable and his blood pressure medications were held. The patient's systolic blood pressure was to 115 overnight, still no complaints of chest pain, but chronic back pain with no change in the quantity or severity to indicate a retroperitoneal bleed. The patient has been transferred to the ICU post cath and stayed there on 01/22/17, until he was able to be transferred back to the floor in the morning of 01/23/17. The patient's blood pressure had remained stable overnight off of pressors. The patient had no other acute complaints except a change in back pain on 01/23/17. However, the patient's blood pressure remained borderline low and his heart rate was increased above 100 up to the 130s with activity. The patient was given 1 L bolus of fluid and then was put on maintenance fluids for a total of 2.5 L of fluid to help control heart rate. The patient's blood pressure wound not have tolerated an increase in carvedilol or other rate-lowering agent besides digoxin at this time. However, due to the transient nature of the patient's hypotension, the patient was now started on digoxin. The patient's blood pressure improved overnight and was consistently approximately 120 systolic. The patient continued to feel better overnight from 01/23/17 to 01/24. However, his heart rate remained between 90 and 110. The patient's carvedilol was increased from 6.25 on the morning of 01/24/17 to 12.5. The patient's heart rate improved slightly and his blood pressure did not decrease. The patient had had some dizziness upon standing on 01/23/17 which resolved with fluids. On 01/24/17 the patient, however, stated that he had a change in the character of his back pain from his chronic back pain to a more superficial pain which he equated to a muscle strain; however, due to the possibility of retroperitoneal bleed, the patient has had a CT scan of his abdomen and pelvis which was read as above showing no retroperitoneal bleed. The patient was amenable to discharge, increased dose of carvedilol for increased rate control to decrease cardiac myocardial oxygen demand. The patient had no other complaints at discharge. PHYSICAL EXAMINATION: On the day of discharge; General: The patient is an 81- year- old male who appears the stated age and sitting in the bed in no acute distress. Vital Signs: At discharge temperature 97.9, pulse rate 84, respiratory rate 20, oxygen saturation 100% on room air, and blood pressure 118/ 61. HEENT: Head normocephalic and atraumatic. Sclerae anicteric. No conjunctival injection. Nasal and oral mucosa moist. No pharyngeal erythema. Neck: Supple and nontender. No lymphadenopathy, no carotid bruits auscultated. Heart: Irregularly irregular rhythm. No clicks, murmurs, gallops, or rubs. S1 and S2 appreciated. No S3. Pulses 2+ in bilateral radial, posterior tibialis , and dorsal pedis areas. No edema. Respiratory: Clear to auscultation bilaterally. No wheezes, rales, or rhonchi. Good air exchange bilaterally. Abdomen: Soft, nontender, and nondistended. Bowel sounds present and normoactive in all 4 quadrants. No hepatosplenomegaly. No abdominal bruits auscultated. Urinary: No suprapubic tenderness or CVA tenderness. Skin: There is an incision covered by a dressing on the right groin with significant surrounding ecchymosis consistent with previous hematoma. Otherwise clean, dry , and intact with no rash. Neuro: Cranial nerves II through XII grossly intact. Alert and oriented x3. No other focal deficits. Psychiatric: Pleasant and cooperative. LABORATORY DATA: On the day of discharge: White blood cell count 7.4, hemoglobin 11.5 down from 12.7 on 01/22/17. Sodium 139, potassium 3.9, chloride 108, carbon dioxide 22, anion gap 6, BUN 15, creatinine of 0.97, glucose 93, calcium 8.8. Lipid panel from 11/30 showed triglycerides of 87, cholesterol 146, LDL cholesterol of 102, HDL cholesterol of 26. Other laboratory data of note, troponin I from 01/21/17 at 0.96 and 1.18. No other abnormalities. DISCHARGE PLAN: The patient will be discharged to home to follow up with his primary care doctor and Dr. Mcdonough for care. Poststenting, the patient was started on Plavix and aspirin while in the hospital. The patient will be continued on Pradaxa. The patient's carvedilol was increased as above to attempt to control his atrial fibrillation without diltiazem. The patient should discuss with Dr. Valle or his primary care doctor the initiation of a PCSK9 inhibitor for control of his LDL cholesterol which is too high based on his history of coronary artery disease. The patient should follow instructions for post-cath care including engaging in activity greater than going upstairs or lifting 10 pounds for 3 days. The patient should follow wound care as instructed by putting a Band-Aid over the cath site. The patient should adhere to a heart-health diet as described in the packet and follow up with [facility]. The patient should return to the hospital for repeat chest pain, shortness of breath, diaphoresis, dizziness upon standing, or other alarming symptoms. The patient should take nitroglycerin as prescribed 0.4 mg sublingually q.5 minutes for any episodes of repeat anginal chest pain and then return to the hospital. TIME SPENT: Approximately 75 minutes was spent on this discharge, 40 of which was spent [id number] with the patient obtaining the history and physical and discussing the treatment plan. KRYSTLE PAUL [id number]/[id number] #: [id number] KARIME
== END 2017-01-24 14:00 | disposition home or self-care (01) | DRG 246 ==
LOC: ED 18:36 → MEDTELE 20:20 → OBSVTOIN 01-20 16:59 → ICU 01-21 12:11 → MEDTELE 01-23 09:02
PROVIDERS: ADMIT Hospitalist; ATTEND Hospitalist
PROC: 027035Z Dilation of Coronary Artery, One Artery with Two Drug-eluting Intraluminal Devices, Percutaneous Approach (ICD-10-PCS; 2017-01-21)
PROC: B2151ZZ Fluoroscopy of Left Heart using Low Osmolar Contrast (ICD-10-PCS; 2017-01-21)
PROC: 4A023N7 Measurement of Cardiac Sampling and Pressure, Left Heart, Percutaneous Approach (ICD-10-PCS; 2017-01-21)
PROC: B2111ZZ Fluoroscopy of Multiple Coronary Arteries using Low Osmolar Contrast (ICD-10-PCS; principal; 2017-01-21 10:00)
DX: I21.4 Non-ST elevation (NSTEMI) myocardial infarction (principal); R57.1 Hypovolemic shock; I95.9 Hypotension, unspecified; I48.2 Chronic atrial fibrillation; I25.10 Atherosclerotic heart disease of native coronary artery without angina pectoris; I97.630 Postprocedural hematoma of a circulatory system organ or structure following a cardiac catheterization; E78.5 Hyperlipidemia, unspecified; G47.33 Obstructive sleep apnea (adult) (pediatric); R55 Syncope and collapse; E66.9 Obesity, unspecified; G89.29 Other chronic pain; I10 Essential (primary) hypertension; M10.9 Gout, unspecified; Z95.0 Presence of cardiac pacemaker; Z79.82 Long term (current) use of aspirin; Z79.01 Long term (current) use of anticoagulants; Z79.02 Long term (current) use of antithrombotics/antiplatelets; M54.9 Dorsalgia, unspecified; Z86.73 Personal history of transient ischemic attack (TIA), and cerebral infarction without residual deficits; Z98.1 Arthrodesis status; Z98.52 Vasectomy status; Z87.891 Personal history of nicotine dependence; Z72.89 Other problems related to lifestyle; Z82.5 Family history of asthma and other chronic lower respiratory diseases; Z68.31 Body mass index [BMI] 31.0-31.9, adult; Z88.8 Allergy status to other drugs, medicaments and biological substances; Z82.49 Family history of ischemic heart disease and other diseases of the circulatory system; M48.00 Spinal stenosis, site unspecified; Y84.8 Other medical procedures as the cause of abnormal reaction of the patient, or of later complication, without mention of misadventure at the time of the procedure; Y92.238 Other place in hospital as the place of occurrence of the external cause
CPT/HCPCS: 36415; 71010; 74176; 76937; 78452; 80048; 80053; 80061; 82553; 82565; 83605; 84484; 84520; 85014; 85018; 85025; 85027; 85379; 85610; 85730; 93005; 93017; 93458; 94760; 99156; 99157; A9270-GY; A9502; C1725; C1760; C1769; C1876; C1887; C9600-LD; G0378; J0360; J0461; J0583; J1644; J2001; J2250; J2270; J2405; J2785; J3010